=== PATIENT | female | born 1960 | race Caucasian/White ===

== ENCOUNTER → 2018-07-06 21:20 | Outpatient (CLI) | payer BC, SELFPAY ==
[2018-07-06 21:32] LABS: Hematocrit 39.4 % (37-47); Mean Corpuscular Hgb 28.6 pg (27.0-32.0); Mean Corpuscular Volume 86.6 fL (81-99); RBC Distribution Width SD 47.2 fl (35.1-43.9); Red Blood Count 4.55 M/mm3 (4.2-5.4)
[2018-07-06 21:33] LABS: Absolute Lymphocyte Count 1.84 X10^3/ul (0.83-4.51); Absolute Neutrophil Count 5.2 X10^3/uL (2.0-7.7); Basophil# 0.01 X10^3/uL; Basophil% 0.1 % (0-1); Eosinophil# 0.18 X10^3/uL; Eosinophils% 2.3 % (0-5); Lymphocyte # 1.84 X10^3/ul (4.0); Mean Platelet Vol. 9.9 fl (6.2-12.0); Monocyte# 0.78 X10^3/uL; Monocyte% 9.8 % (0-10); Neutrophil # 5.18 X10^3/uL (2.7-7.7); Neutrophil % 64.7 % (47-70); POSITIVE COUNT NO; POSITIVE DIFFERENTIAL NO; POSITIVE MORPHOLOGY NO; Platelet Count 323 K/mm3 (150-450)
[2018-07-06 22:03] LABS: Glucose 99 mg/dL (74-106)
[2018-07-06 22:04] LABS: ALB/GLOB Ratio 0.9 RATIO (0.9-2.4); AST(SGOT) 20 U/L (15-37); Alanine Aminotransfer ALT/SGPT 39 U/L (13-56); Albumin, Serum 3.6 g/dL (3.2-5.0); Alkaline Phosphatase 183 U/L (45-117); BUN 24 mg/dL (7-18); BUN/Creat Ratio 18.5 RATIO (10-20); Calcium,Total 9.5 mg/dL (8.5-10.1); Globulin 4.1 g/dL (2.2-4.2); Protein, Total 7.7 g/dL (6.4-8.2)
[2018-07-06 22:05] LABS: Anion Gap 8 (5-15); Chloride 94 mmol/L (98-107); Ferritin 308 ng/mL (8-252); Iron Binding Capacity,Total 284 ug/dL (250-450); Potassium 2.7 mmol/L (3.5-5.1); Thyroid Stim Hormone (TSH) 1.52 uIU/mL (0.358-3.74)
[2018-07-06 22:20] LABS: EST Glomerular Filtration Rate 44 mL/min (>60); Est Glom Filt Rate - Afr Amer 54 mL/min (>60); Sodium Level 137 mmol/L (136-145)
[2018-07-08 14:09] LABS: ANTINUCLEAR ANTIBODIES DIRECT Negative (Negative)
[2018-07-09 11:43] LABS: ALB/GLOB Ratio 0.9 RATIO (0.9-2.4); AST(SGOT) 21 U/L (15-37); Alanine Aminotransfer ALT/SGPT 36 U/L (13-56); Albumin, Serum 3.5 g/dL (3.2-5.0); Alkaline Phosphatase 173 U/L (45-117); Anion Gap 7 (5-15); BUN 24 mg/dL (7-18); BUN/Creat Ratio 21.8 RATIO (10-20); Chloride 104 mmol/L (98-107); EST Glomerular Filtration Rate 54 mL/min (>60); Est Glom Filt Rate - Afr Amer 65 mL/min (>60); Glucose 111 mg/dL (74-106); Potassium 4.9 mmol/L (3.5-5.1); Protein, Total 7.5 g/dL (6.4-8.2); Sodium Level 140 mmol/L (136-145)
--- OUTSIDE RECORDS SUMMARY | 2018-09-01 04:46 | XMS RPT_ITS ---
:1960 Author Organization OHIP Care Team Providers Name Role Phone LOTTIE LOPEZKA Referring Unavailable LOPEZ, GRACE Referring Unavailable LOPEZ, GRACE Referring Unavailable LOPEZ, GRACE Referring Unavailable LOPEZ, GRACE Referring Unavailable Reddy, Marti FORKLIFT PICKER-C Attending Unavailable Reddy, Marti FORKLIFT PICKER-C Referring Unavailable Reddy, Marti FORKLIFT PICKER-C Attending Unavailable Parrish Worrell Attending Unavailable Parrish Worrell Attending Unavailable Parrish Worrell Referring Unavailable Reddy, Marti FORKLIFT PICKER-C Primary Care Unavailable Parrish Worrell Attending Unavailable Parrish Worrell Referring Unavailable Reddy, Marti FORKLIFT PICKER-C Primary Care Unavailable PROBLEMS PROBLEMS DATE TYPE CONDITION / CODE ATTENDING STATUS SOURCE 07/12/2018 Unknown I50.9 - Heart Parrish Worrell Active [facility] [place] failure, unspecified Community / I50.9(ICD-10) Hospital Repository 07/12/2018 Unknown I42.0 - Dilated Parrish Worrell Active [place] cardiomyopathy / Community I42.0(ICD-10) Hospital Repository 07/12/2018 Unknown I34.0 - Nonrheumatic Parrish Worrell Active [place] mitral (valve) Community insufficiency / Hospital I34.0(ICD-10) Repository 07/12/2018 Unknown R40.0 - Somnolence / Parrish Worrell Active [place] R40.0(ICD-10) [facility] Hospital Repository 07/07/2018 Unknown M25.40 - Effusion, Reddy, Active [place] unspecified joint / Marti FORKLIFT PICKER-C Community M25.40(ICD-10) Hospital Repository 07/07/2018 Unknown D64.9 - Anemia, Clint, Active [place] unspecified / Marti FORKLIFT PICKER-C Community D64.9(ICD-10) Hospital Repository 07/07/2018 Unknown E03.9 - Clint, Active [place] Hypothyroidism, Marti FORKLIFT PICKER-C Community unspecified / Hospital E03.9(ICD-10) Repository 05/06/2018 Active Anemia, unspecified NA Active [place] / D64.9(ICD-10) Clinic Other [place] Repository PROCEDURES PROCEDURES No Procedure Records FoundRESULTS RESULTS STRESS TEST ECHO W/ Observed: 07/26/2018 Status: F Source: [place] CONTRAST 5:12 PM [facility] REPOSITORY [facility] Cardiovascular Services [address] [place] [address] Stress Test Echo W/Contrast MR#: [id number] Acct: [id number] Name: TOBIAS VALLES Rep #: [id number] : 1960 58 From: Parrish Worrell MD Primary Care: Marti Reddy NP Status: REG CLI Ordering Dr: Parrish Worrell MD Sex: F C Reason For Study: CHF Stress Results Maximum Predicted HR: 160 bpm Target HR: 136 bpm % Maximum Predicted HR: 97 % DurationHeart Rate Stage (mm:ss) (bpm) BP Comment BASELINE 93 162/821CC DEFINITY,SL SOB WITH AMBULATING TO ROOM PRE PROCEDURE STAGE 1 2:30 155 168/841CC DEFINITY, INCREASED SOB RECOVERY 96 138/88SOB RESOLVED Stress Duration: 2:30 mm:ss Maximum Stress HR: 155 bpm Baseline Echocardiogram Findings The estimated ejection fraction is 60 %. Stress Echo Wall motion Data Resting WM Intermediate WM Stress WM Resting Wall Motion Wall Motion Stress No regional wall motion No regional wall motion abnormalities noted. abnormalities noted. EKG Data The baseline ECG displays normal sinus rhythm. The patient exercised according to the regular Main protocol for a total duration of 2:30. The maximum heart rate attained was 155 beats per minute. This was 96% of maximum predicted heart rate. The patient exercised into stage 1 of the Main protocol. During stress, there were no ST or T wave changes noted to suggest ischemia. No clinical angina was noted. Interpretation Summary The study was technically limited. Contrast injection was performed. The estimated ejection fraction is 60 %. Normal, adequate, treadmill echocardiogram. Negative for ischemia by EKG and echocardiographic criteria. No anginal symptoms noted. Rare PVCs noted. Hypertensive blood pressure response to exercise. Very poor exercise capacity for age. Decreased sensitivity due to failure poor echo windows requiring Definity agent. Final LVEF of 65%. Recommend clinical correlation or alternative mode of testing if coronary ischemia is strongly suspected. No complications. Ordering Physician: Parrish Worrell Referring Physician: Parrish Worrell Performed By: Elissa Ward RDCS, RVT 07/26/181710 Date Parrish Worrell MD CC: LINDA Reddy; Parrish Worrell MD Date Dictated: 07/25/18 1030 Date Transcribed: 07/26/181710 Power Superintendent: Signed ECHO, COMPLETE W/ Observed: 07/20/2018 Status: F Source: [place] CONTRAST 3:04 PM [facility] REPOSITORY [facility] Cardiovascular Services [address] [place] [address] Echo Complete W/ Contrast 07/20/18 1354 MR#: [id number] Acct: [id number] Name: TOBIAS VALLES Rep #: [id number] : 1960 58 From: Parrish Worrell MD Attending Dr: Parrish Worrell MD Status: REG CLI Ordering Dr: Parrish Worrell MD Date: 07/20/18 Location: [facility] Sex: F C Admitted: Reason For Study: CHF Procedure This was a 2D Doppler, Color Flow transthoracic echocardiogram. The study was technically difficult. Contrast injection was performed. Exam performed in department. Left Ventricle Normal size and thickness. The estimated ejection fraction is 55 %. Stage 1 diastolic dysfunction. There is mild global hypokinesis of the left ventricle. Right Ventricle Normal size and thickness. Atria Normal left atrium. Normal right atrium. Normal atrial septum. Mitral Valve The mitral valve is structurally normal. No prolapse or stenosis seen. Tricuspid Valve Normal tricuspid valve. Unable to estimate RV systolic pressure/pulmonary artery pressure due to technically difficult study. Aortic Valve Normal aortic valve. Trisinus/trileaflet aortic valve. Pulmonic Valve Normal pulmonic valve. Great Vessels Normal aortic root. Normal arch. Normal inferior vena cava. Inferior vena cava collapse with sniff. Pericardium/Pleural No pericardial effusion. Medication 22 gauge I.V. with prn adaptor inserted into left arm. Diluted definity 3ml given slow IV push to enhance endocardial definition. MMode/2D Measurements AND Calculations LVIDd: 5.1 cm IVSd: 1.2 cm Ao root diam: 2.9 cm LVIDs: 3.9 cm LVPWd: 1.0 cm LA dimension: 4.2 cm FS: 22.5 % LAV(MOD-bp): 75.0 ml LVAd ap4: 36.0 cm2 SV(MOD-sp4): 74.3 ml LAV(MOD-bp) Indexed: 32.1 ml/m2 EDV(MOD-sp4): 131.8 ml LAV(MOD-sp2): 68.7 ml EDV(sp4-el): 135.7 ml LAV(MOD-sp4): 64.0 ml LVAs ap4: 21.8 cm2 ESV(MOD-sp4): 57.4 ml ESV(sp4-el): 55.6 ml EF(MOD-sp4): 56.4 % EF(sp4-el): 59.0 % SV(sp4-el): 80.0 ml LA A4 area: 20.2 cm2 RA A4 area: 16.4 cm2 Time Measurements MV dec time: 0.18 sec Doppler Measurements AND Calculations MV E max luz: 100.1 cm/sec MV V2 max: 153.1 cm/sec MV P1/2t max luz: 135.8 cm/sec MV A max luz: 121.8 cm/sec MV max P.4 mmHg MV P1/2t: 62.3 msec MV E/A: 0.82 MV V2 mean: 90.6 cm/sec MV dec slope: 637.9 cm/sec2 MV mean P.0 mmHg MVA(P1/2t): 3.5 cm2 MV V2 VTI: 30.2 cm Ao V2 max: 131.9 cm/sec LV V1 max: 98.4 cm/sec PA V2 max: 102.1 cm/sec Ao max P.0 mmHg LV V1 max P.9 mmHg Ao V2 mean: 88.8 cm/sec LV V1 mean P.6 mmHg Ao mean P.5 mmHg LV V1 mean: 57.3 cm/sec Ao V2 VTI: 25.0 cm LV V1 VTI: 22.5 cm Interpretation Summary The estimated ejection fraction is 55 %. There is mild global hypokinesis of the left ventricle. Unable to estimate RV systolic pressure/pulmonary artery pressure due to technically difficult study. Stage 1 diastolic dysfunction. The study was technically difficult. There is no comparison study available. Contrast injection was performed. Ordering Physician: Parrish Worrell Referring Physician: Parrish Worrell Performed By: Gonzalez Kingsley RCS 07/20/18 1504 Date Parrish Worrell MD CC: LINDA Reddy; Parrish Worrell MD Date Dictated: 07/20/18 1354 Date Transcribed: 07/20/18 1504 Power Superintendent: Signed CARDIOLOGY VISIT Observed: 07/12/2018 Status: F Source: [place] REPORT 2:44 PM [facility] REPOSITORY [facility] [address] [facility] [place] [address] OFFICE VISIT Date of Service: 07/12/18 MR#: [id number] Acct: [id number] Name: TOBIAS NAVARRO Rep #: [id number] : 1960 Provider: Parrish Worrell MD Age/Sex: 58/F Location: [facility] Status: Signed HPI HPI Chief Complaint: Dilated CMP/initial visit Details: TOBIAS NAVARRO, is a 58 F who presents to the office today for initial evaluation of previously diagnosed LV dysfunction and pulmonary hypertension. Specifically the patient is a 58-year-old morbidly obese nondiabetic female, former smoker quit around 8 years ago after a 2 pack/day x 30-year smoking habit, no known coronary artery disease. The patient was diagnosed with congestive heart failure after she presented about 2 years ago with shortness of breath and dyspnea on exertion and lower extremity edema. On 08/07/16 she underwent a 2D echo with Doppler which demonstrated an EF around 40%, RVSP of approximately 44 mmHg. He underwent a non-walking nuclear stress test on 11/06/16 which demonstrated no evidence of ischemia, normal LV function, an EF around 55%. In addition she underwent a CT scan on 03/31/17 which showed mild emphysema and stable mild chronic interstitial lung disease and stable small masses in her liver and adrenal gland. She was initially treated with beta- lópez and lisinopril which was subsequently discontinued. She is currently on high-dose spironolactone 100 mg twice daily and Lasix 40 mg 3 times daily. Patient states that for the better part of the year she has continued to have worsening shortness of breath and dyspnea on exertion so much so that she is unable to lay down flat and now sleeps in a chair. She also admits to excessive snoring when she was able to lay down flat, daytime somnolence, and constantly tired. She denies any current chest pain or angina but did have some chest pressure when she is initially diagnosed in 2016. In our office today her blood pressure is 150/60, pulse is 100 and regular. Her physical exam demonstrates morbid obesity, clear lungs bilaterally, no carotid bruits, regular rate and rhythm, no S3 or S4. No murmurs are detected. She has trace bilateral lower extremity edema and is wearing NA hose. Her EKG dated 10/26/16 showed sinus tachycardia, normal axis, normal intervals, PVC, no previous myocardial infarction noted. EKG today 07/12/18 showed normal sinus rhythm, PVC, normal axis, no evidence of previous myocardial infarction. Intake Vital Signs07/12/18 Height 5 ft 7 in 07/12/18 Weight: 284 lb 07/12/18 Body Mass Index (BMI) 44.4 07/12/18 Blood Pressure 150/60 H Intake Visit Reasons: CHF (MARTI REDDY) [employer] Supervisor Required: No Is patient in pain?: No Allergies nitrofurantoin [From Macrodantin] Allergy (Severe, Verified 07/12/18 14:07) Rash and swelling Penicillins Allergy (Severe, Verified 07/12/18 14:07) Rash and swelling azithromycin [From Zithromax] Adverse Reaction (Severe, Verified 07/12/18 14:09) Chest pain, nausea acetaminophen [From Vicodin] Adverse Reaction (Intermediate, Verified 07/12/18 14:07) Nausea and Vomiting hydrocodone [From Vicodin] Adverse Reaction (Intermediate, Verified 07/12/18 14:07) Nausea and Vomiting Medications duloxetine 60 mg capsule,delayed release 60 mg PO DAILY #30 cap 07/06/18 [Rx Confirmed 07/12/18] meloxicam 15 mg tablet 15 mg PO QDAY #30 tab 07/06/18 [Rx Confirmed 07/12/18] prednisone 10 mg tablet 20 mg PO BID PRN 10 Days #40 tab 07/06/18 [Rx Confirmed 07/12/18] budesonide-formoterol HFA 160 mcg-4.5 mcg/actuation aerosol inhaler 2 puff INHALATION BID 07/07/18 [History Confirmed 07/12/18] potassium chloride ER 20 mEq tablet,extended release 40 meq PO TID 14 Days #84 tab 07/07/18 [Rx Confirmed 07/12/18] pramipexole 0.75 mg tablet 0.75 mg PO QHS 07/07/18 [History Confirmed 07/12/18] ranitidine 150 mg tablet 150 mg PO DAILY 07/07/18 [History Confirmed 07/12/18] spironolactone 100 mg tablet 100 mg PO BID #60 tab 07/07/18 [Rx Confirmed 07/12/18] tramadol 50 mg tablet 50 mg PO Q6H 07/07/18 [History Confirmed 07/12/18] trazodone 100 mg tablet 100 mg PO DAILY 07/07/18 [History Confirmed 07/12/18] valacyclovir 1 gram tablet 1,000 mg PO DAILY 07/07/18 [History Confirmed 07/12/18] venlafaxine ER 75 mg capsule,extended release 24 hr 75 mg PO DAILY 07/07/18 [History Confirmed 07/12/18] dextroamphetamine-amphetamine ER 10 mg 24hr capsule,extend release 10 mg PO QAM 07/12/18 [History Confirmed 07/12/18] furosemide 40 mg tablet 40 mg PO TID tab 07/12/18 [History Confirmed 07/12/18] gabapentin 300 mg capsule 300 mg PO TID 07/12/18 [History Confirmed 07/12/18] [facility] Medical History Melanoma of left upper arm (Chronic) Dilated cardiomyopathy (Chronic) Nonrheumatic mitral valve regurgitation (Chronic) Secondary pulmonary hypertension (Chronic) Left ventricular systolic dysfunction (Chronic) Asthma (Chronic) GERD (gastroesophageal reflux disease) (Chronic) Anemia (Chronic) CHF (congestive heart failure) (Acute) Anxiety disorder (Chronic) Depression (Chronic) Low iron (Chronic) Surgical History History of (Chronic) History of cholecystectomy (Chronic) History of hysterectomy (Chronic) History of right knee surgery (Chronic) Family History Father Cancer History of mitral valve replacement with mechanical valve Congestive heart failure Mother Congestive heart failure Social History Smoking Status: Former smoker quit date: 08/09/09 ROS Const Const: Positive for fatigue and other (Just DX with rheumatoid arthritis.); negative for weakness, body ache, fever(s), headache(s), chills, frequent falls, night sweats, daytime sleepiness, difficulty sleeping, excessive sweating, weight gain, weight loss, increased appetite, poor appetite or anorexia ENT ENT: Negative for headache(s) Cardio Chest Pain: No Palpitations: No Edema: Bilateral (Wears support stocking, is on Lasix 40 tid and spironolactone 100 bid) Muscle aches with walking: None Resp Respiratory: Positive for SOB with activity, SOB orthopnea\SOB lying down and other; negative for SOB at rest, Cough, Coughing up blood/hemoptysis, chest congestion, pain on inspiration, snoring, stridor, wheezing, crackles or paroxysmal nocturnal dyspnea Neuro Neuro: Negative for weakness, headache(s) or frequent falls Endo Endo: Positive for fatigue; negative for excessive sweating Cardiology Exam Const Appearance: cooperative, healthy appearing and no acute distress Nutritional Appearance: well nourished Orientation: alert, oriented x3 and oriented to person Head Head: normal to inspection, atraumatic and normocephalic Nose: external nose normal Face and Sinus: face symmetric Mouth: oral mucosae normal Eyes General: appearance normal, both eyes and all related structures Eyelids: eyelids normal Conjunctivae: conjunctivae normal Pupils: PERRL and normal by confrontation EOM: EOM intact bilaterally Neck Neck: normal visual inspection and full ROM Carotids: normal carotid upstroke Chest Chest inspection: normal inspection of the chest Auscultation: Bilateral: Clear to Auscultation Cardio Palpation: normal PMI Rate: regular rate Rhythm: regular rhythm Heart sounds: S1 normal and S2 normal GI GI: normal to inspection, no hepatosplenomegaly and bowel sounds present Neuro General: alert, oriented x3, awake, CN's II-XI intact bilaterally and moves all extremities Skin Skin: no rashes or lesions noted Extremities Pulses: Normal: Right Femoral Pulse, Left Femoral Pulse, Right Dorsalis Pedis Pulse, Left Dorsalis Pedis Pulse, Right Posterior Tibial Pulse, Left Posterior Tibial Pulse, Right Radial Pulse, Left Radial Pulse Lower Extremity Edema: None: Bilateral Psych Psychological: normal affect Assessment AND Plan 1. Dilated cardiomyopathy I42.0 EF 39%, left ventricle moderately dilated; entire anterior, lateral,septum, apex and inferior wall are mildly hypokinetic per echo 08/07/2016 done @ [facility] Plan 1. LV dysfunction: The patient was noticed with LV dysfunction by echocardiogram in 2016 and reportedly was found to have normal LV by nuclear medicine evaluation in 2017. Patient has had progressively worsening dyspnea on exertion, shortness of breath, superimposed upon hypertension. I am unsure why her lisinopril and beta-lópez were discontinued as she did not appear to have any side effects. I recommended that we repeat her 2D echo with Doppler and undergo a modified Main treadmill echocardiogram to assess her LV function, exercise capacity, and ischemia. If this is grossly abnormal for abnormality she may require a left and right heart catheterization. In the meantime we will start her on baby aspirin, continue her Lasix, and continue her spironolactone at the current levels although my preference would be to reduce her spironolactone at least to 100 mg daily. In addition she will undergo treatment with Coreg 3.125 mg p.o. twice daily for tachycardia and LV dysfunction. She will return in 2 weeks time for a blood pressure check. In addition we will check a fasting profile for completeness of her cardiovascular evaluation. Orders Orders: 2. Secondary pulmonary hypertension Mild:RVSP 44mmhg per echo 08/07/2016 done @ [facility] Plan 2. Pulmonary hypertension: Given the patient's smoking history and RVSP of 44 mmHg, I recommend repeat echocardiogram, continuation of diuretic therapy, and full pulmonary function test to accurately diagnose whether she truly has COPD/emphysema. Her previous diagnosis came from a CT scan. 3. Somnolence, daytime R40.0 Plan 3. Daytime somnolence:Patient may have undiagnosed obstructive sleep apnea and given her signs and symptoms as well as her daytime somnolence, snoring, and body habitus I recommended a sleep study. 4. Return office in 6 months. This note was generated using a voice recognition system and there may be incorrect words, spelling or punctuation that were not noted when reviewing the office note prior to saving. Orders Orders: Plan Detail Other Orders Orders: Follow Up +6M (Worrell) Coding Level of Care Code Off vis,new,level 4 Diagnoses Dilated cardiomyopathy I42.0 Secondary pulmonary hypertension Somnolence, daytime R40.0 Coding Level of Care Code Off vis,new,level 4 Diagnoses Dilated cardiomyopathy I42.0 Secondary pulmonary hypertension Somnolence, daytime R40.0 07/12/18 1444 <Electronically signed by Parrish Worrell MD> Date Parrish Worrell MD Cosigner Signature: Date (if applicable) CC: 12 LEAD EKG PERFORMED Observed: 07/12/2018 Status: F Source: [place] [facility] 1:51 PM [facility] REPOSITORY [id number] [place] [address] [address] [facility] 07/12/18 1351 MR#: [id number] Acct: [id number] Name: TOBIAS VALLES Rep #: [id number] : 1960 58 From: Parrish Worrell MD Attending Dr: Parrish Worrell MD Status: DEP AMB Ordering Dr: Parrish Worrell MD Date: 07/12/18 Location: [facility] Sex: F C Admitted: [facility]/12 Lead EKG performed by [facility] ECG Report Interpretation Sinus Rhythm - occasional ectopic ventricular beat -Possible old inferior infarctABNORMAL Electronically signed on 07/22/2018 at 15:34 by Parrish Worrell Software Version [id number] 07/22/18 1541 Date Parrish Worrell MD CC: Date Dictated: 07/12/18 135 Date Transcribed: 07/12/18 1351 Power Superintendent: Signed COMPREHENSIVE METABOLIC Collected: 07/09/2018 Status: F Source: [place] [facility] 11:05 AM [facility] REPOSITORY TYPE CODE TESTS RESULT OUT OF RANGE REFERENCE UNITS LAB L501.0100 74-106 mg/dL High GLU 111 Result Comment: Fasting Glucose result from 100 to 125 mg/dL suggests IMPAIRED HOMEOSTASIS per A.D.A. criteria. Please note revised GLUCOSE reference range effective 2017. LAB L501.1000 7-18 mg/dL High BUN 24 LAB L501.1100 0.55-1.02 mg/dL High CREAT,SERUM 1.10 Result Comment: The validity of the calculated GFR AND GFRAA in patients over 70 years has not been determined. Clinical correlation is essential. LAB L501.1110 >60 mL/min Low EST GFR 54 Result Comment: Non- GFR Calc LAB L501.1115 >60 mL/min Normal EST GFR - AA 65 Result Comment: GFR Calc LAB L501.1300 10-20 RATIO High BUN/CRE 21.8 LAB L501.1500 6.4-8.2 g/dL T Normal PROT 7.5 LAB L501.1800 3.2-5.0 g/dL Normal ALB 3.5 LAB L501.1950 2.2-4.2 g/dL Normal GLOB 4.0 LAB L501.2000 0.9-2.4 RATIO Normal A/G 0.9 LAB L501.2200 8.5-10.1 mg/dL CA Normal 9.0 LAB L501.4100 15-37 U/L Normal AST 21 LAB L501.4305 45-117 U/L High ALK P 173 LAB L501.4405 13-56 U/L Normal ALT 36 LAB L501.4600 0.20-1.00 mg/dL T Normal BILI 0.30 LAB L501.5300 136-145 mmol/L NA Normal 140 LAB L501.5600 3.5-5.1 mmol/L K Normal 4.9 LAB L501.5900 98-107 mmol/L CL Normal 104 LAB L501.6100 21.0-32.0 mmol/L Normal CO2 29.0 LAB L501.6200 5-15 Normal GAP 7 Performed By: #### L500.4050 #### [facility] [address] [place], [address] OFFICE VISIT Observed: 07/07/2018 Status: F Source: [place] 2:47 PM [facility] REPOSITORY [facility] [address] [place] [address] OFFICE VISIT Date of Service: 07/06/18 MR#: [id number] Acct: [id number] Name: TOBIAS NAVARRO Rep #: [id number] : 1960 Provider: LINDA Reddy Age/Sex: 58/F Location: [facility] Status: Signed with Addenda ADDENDUM by LINDA Reddy on 07/07/18 at 1447 OFFICE PROCEDURES Office Procedure Documentation entered by VICENTE Hernandez 07/07/18 14:47: Office Meds cyanocobalamin (vit B-12) Performing Provider: VICENTE Hernandez Administered by: VICENTE Hernandez on 07/07/18 14:47 Dose Route Admin Location Lot Number Expiration Date [facility] Manager [employer] 1,000 mcg IM L deotoid [id number] 07/08/19 9348-6070-73 [employer] 07/07/18 1447 <Electronically signed by Marti ZHANG> Date Marti Reddy cc: * Signed Intake Vital Signs07/06/18 Height 5 ft 5 in 07/06/18 Weight: 282 lb Intake Visit Reasons: ESTABLISH NEW, CHF (congestive heart failure) Accompanied by: Is patient in pain?: Yes Allergies No Known Allergies Allergy (Verified 07/07/18 14:24) Medications duloxetine 60 mg capsule,delayed release 60 mg PO DAILY #30 cap 07/06/18 [Rx Confirmed 07/06/18] meloxicam 15 mg tablet 15 mg PO QDAY #30 tab 07/06/18 [Rx Confirmed 07/06/18] prednisone 10 mg tablet 20 mg PO BID PRN 10 Days #40 tab 07/06/18 [Rx Confirmed 07/06/18] budesonide-formoterol HFA 160 mcg-4.5 mcg/actuation aerosol inhaler 2 puff INHALATION BID 07/07/18 [History Confirmed 07/07/18] dextroamphetamine-amphetamine ER 10 mg 24hr capsule,extend release 10 mg PO QAM 07/07/18 [History Confirmed 07/07/18] furosemide 80 mg tablet 80 mg PO TID tab 07/07/18 [History Confirmed 07/07/18] gabapentin 100 mg capsule 100 mg PO TID cap 07/07/18 [History Confirmed 07/07/18] metolazone 2.5 mg tablet 2.5 mg PO DAILY 07/07/18 [History Confirmed 07/07/18] potassium chloride ER 20 mEq tablet,extended release 40 meq PO TID 14 Days #84 tab 07/07/18 [Rx Confirmed 07/07/18] pramipexole 0.75 mg tablet 0.75 mg PO QHS 07/07/18 [History Confirmed 07/07/18] ranitidine 150 mg tablet 150 mg PO DAILY 07/07/18 [History Confirmed 07/07/18] spironolactone 100 mg tablet 100 mg PO BID #60 tab 07/07/18 [Rx Confirmed 07/07/18] tramadol 50 mg tablet 50 mg PO Q6H 07/07/18 [History Confirmed 07/07/18] trazodone 100 mg tablet 100 mg PO DAILY 07/07/18 [History Confirmed 07/07/18] valacyclovir 1 gram tablet 1,000 mg PO DAILY 07/07/18 [History Confirmed 07/07/18] venlafaxine ER 75 mg capsule,extended release 24 hr 75 mg PO DAILY 07/07/18 [History Confirmed 07/07/18] Is last menstrual period known: No Post menopausal: Yes Patient : No PFSH Medical History Anemia (Acute) Anxiety disorder (Acute) Asthma (Acute) CHF (congestive heart failure) (Acute) Depression (Acute) GERD (gastroesophageal reflux disease) (Acute) Low iron (Acute) HPI HPI (General) HPI HPI: TOBIAS NAVARRO, is a 58 F who presents to the office today for new opinion about her problems She is seeing a Dr at the but she does not liten to her . She aches all over and and is very swollen, legs hands with some deformity , just touching her skin at times makes her scream in pain. approximately 1 year ago had an episode of unable to get her breath and ended up in [facility] and diagnosed with CHF, since then everything has gone down hill . She is on lasix 80 mg 3 x a day for the swelling and she is still swollen. He dr draws blood every 3 months. Today she is cramping and hurting all over . She states had an echo done in [place] all normal and stress test normal states sleeps in a recliner unable to lay flat Will get labs drawn today and call with the results and switch some of her meds around Claims recently had an iron infusion just a few weeks ago also ROS Const Constitutional: Positive for body ache, anorexia and weight change (weight gain) Gastro GI: Yes nausea/dyspepsia Neuro Neurology: Positive for restless legs Exam Const Constitutional: Yes cooperative, Yes ill appearing, Yes anxious Nutritional Appearance: Yes obese Orientation: Yes alert, awake and oriented x3 HENMT Head: Yes normocephalic Ear: Yes hearing grossly normal bilaterally Neck Neck: normal visual inspection Thyroid: thyroid normal Eyes General: Yes appearance normal, both eyes and all related structures Chest Chest palpation AND inspection: Yes normal inspection of the chest Resp Effort AND Inspection: Yes normal respiratory effort Auscultation: Yes clear to auscultation bilaterally Cardio Palpitation: Yes normal PMI Rate: Yes regular rate Rhythm: Yes regular rhythm GI Inspection: Yes normal to inspection Auscultation: Yes normal bowel sounds Musc Cervical Spine: Yes cervical ROM normal Thoracic/Lumbar Spine: Yes thoracic and lumbar spine normal to inspection Skin General: no rashes or lesions noted Lesions: Yes no lesions Extrem General: Yes normal to inspection Neuro General: Yes alert and oriented x3 Psych Appearance: Positive grossly normal Mood: Positive congruent mood Affect: Positive normal affect Assessment AND Plan Problems 1. Chronic congestive heart failure, unspecified heart failure type I50.9 2. Iron deficiency E61.1 3. Primary osteoarthritis involving multiple joints M15.0 4. B12 deficiency E53.8 Patient Instructions Stop the celexa and start the duloxetine for now Take the prednisone with meals and after done then start the meloxicam for the pain Will call with the results of the labs drawn today Orders Orders: Medications New: Coding Level of Care Code Off vis,new,level 4 Diagnoses Chronic congestive heart failure, unspecified heart failure type I50.9 Heart failure type: unspecified Heart failure chronicity: chronic Iron deficiency E61.1 Primary osteoarthritis involving multiple joints M15.0 Osteoarthritis location: multiple joints Osteoarthritis type: primary B12 deficiency E53.8 07/07/18 1440 <Electronically signed by Marti GIMENEZC> Date Marti ZHANG CC: CBC W/DIFF, AUTOMATED Collected: 07/06/2018 Status: F Source: JULIO 7:55 PM [facility] REPOSITORY TYPE CODE TESTS RESULT OUT OF RANGE REFERENCE UNITS LAB L100.1000 4.4-11.0 K/mm3 Normal WBC 8.0 LAB L100.1200 4.2-5.4 M/mm3 Normal RBC 4.55 LAB L100.1300 12.0-15.0 g/dl Normal HGB 13.0 LAB L100.1400 37-47 % Normal HCT 39.4 LAB L100.1500 81-99 fL Normal MCV 86.6 LAB L100.1600 27.0-32.0 pg Normal MCH 28.6 LAB L100.1700 32-36 g/gl Normal MCHC 33.0 LAB L100.1810 11.6-14.6 % High RDW CV 15.0 LAB L100.1820 35.1-43.9 fl High RDW SD 47.2 LAB L100.1900 150-450 K/mm3 Normal PLT 323 LAB L100.2000 6.2-12.0 fl Normal MPV 9.9 LAB L100.2100 47-70 % Normal NEUT% 64.7 LAB L100.2200 19-41 % Normal LY% 23.0 LAB L100.2300 0-10 % Normal MONO% 9.8 LAB L100.2400 0-5 % Normal EO% 2.3 LAB L100.2500 0-1 % Normal BASO% 0.1 LAB L100.2550 0.0-0.9 % Normal IM GRAN % 0.100 Result Comment: IG% - Immature Granulocytes (promyelocytes, myelocytes and metamyelocytes) > 1% indicates that a LEFT SHIFT is Present. LAB L100.2620 2.0-7.7 X10 3/uL Normal Absolute Neut 5.2 LAB L100.2720 0.83-4.51 X10 3/ul Normal Absolute Lymph 1.84 Performed By: #### L100.0100 #### [facility] [address] [place], [address] COMPREHENSIVE METABOLIC Collected: 07/06/2018 Status: C Source: JULIO [facility] 7:55 PM [facility] REPOSITORY TYPE CODE TESTS RESULT OUT OF RANGE REFERENCE UNITS LAB L501.0100 74-106 mg/dL Normal GLU 99 Result Comment: Please note revised GLUCOSE reference range effective 2017. LAB L501.1000 7-18 mg/dL High BUN 24 LAB L501.1100 0.55-1.02 mg/dL High CREAT,SERUM 1.30 Result Comment: The validity of the calculated GFR AND GFRAA in patients over 70 years has not been determined. Clinical correlation is essential. LAB L501.1110 >60 mL/min Low EST GFR 44 Result Comment: Non- GFR Calc AMENDED REPORT 07/06/182219 EST GFR previously reported as: 44 L mL/min LAB L501.1115 >60 mL/min Low EST GFR - AA 54 Result Comment: GFR Calc AMENDED REPORT 07/06/182219 EST GFR - AA previously reported as: 53 L mL/min LAB L501.1300 10-20 RATIO Normal BUN/CRE 18.5 LAB L501.1500 6.4-8.2 g/dL T Normal PROT 7.7 LAB L501.1800 3.2-5.0 g/dL Normal ALB 3.6 LAB L501.1950 2.2-4.2 g/dL Normal GLOB 4.1 LAB L501.2000 0.9-2.4 RATIO Normal A/G 0.9 LAB L501.2200 8.5-10.1 mg/dL CA Normal 9.5 LAB L501.4100 15-37 U/L Normal AST 20 LAB L501.4305 45-117 U/L High ALK P 183 LAB L501.4405 13-56 U/L Normal ALT 39 LAB L501.4600 0.20-1.00 mg/dL T Normal BILI 0.50 LAB L501.5300 136-145 mmol/L NA Normal 137 Result Comment: CALLED MARTI REDDY WITH CRITICAL K ON 07-06-18 AT 2200PM BY MAF READ BACK BY SAME AMENDED REPORT 07/06/182219 NA previously reported as: 137 mmol/L LAB L501.5600 3.5-5.1 mmol/L Low alert K 2.7 LAB L501.5900 98-107 mmol/L Low CL 94 LAB L501.6100 21.0-32.0 mmol/L High CO2 35.0 LAB L501.6200 5-15 Normal 8 GAP Performed By: #### L500.4050, L501.9520, L503.6075, L503.6550, L505.7010 #### [facility] [address] [place], [address] THYROID STIM HORMONE Collected: 07/06/2018 Status: F Source: [place] (TSH) 7:55 PM [facility] REPOSITORY TYPE CODE TESTS RESULT OUT OF RANGE REFERENCE UNITS LAB L501.9520 0.358-3.74 uIU/mL Normal TSH 1.52 Performed By: #### L500.4050, L501.9520, L503.6075, L503.6550, L505.7010 #### [facility] [place], [place], [id number] IRON BINDING Collected: 07/06/2018 Status: F Source: [place] CAPACITY,TOTAL 7:55 PM [facility] REPOSITORY TYPE CODE TESTS RESULT OUT OF RANGE REFERENCE UNITS LAB L503.6075 250-450 ug/dL Normal TIBC 284 Performed By: #### L500.4050, L501.9520, L503.6075, L503.6550, L505.7010 #### [facility] [place], [address] FERRITIN Collected: 07/06/2018 Status: F Source: [place] 7:55 PM [facility] REPOSITORY TYPE CODE TESTS RESULT OUT OF REFERENCE UNITS RANGE LAB L503.6550 8-252 ng/mL High FERRITIN 308 Performed By: #### L500.4050, L501.9520, L503.6075, L503.6550, L505.7010 #### [facility] [address] [place], [place], [address] RHEUMATOID FACTOR Collected: 07/06/2018 Status: F Source: JULIO 7:55 PM [facility] REPOSITORY TYPE CODE TESTS RESULT OUT OF REFERENCE UNITS RANGE LAB L505.7010 <15 IU/mL High RHEUMATOID FAC 290.0 Performed By: #### L500.4050, L501.9520, L503.6075, L503.6550, L505.7010 #### [facility] [address] [place], [place], [id number] ENRIQUETA W/ REFLEX MULT Collected: 07/06/2018 Status: F Source: [place] CONFIRM 7:55 PM [facility] REPOSITORY TYPE CODE TESTS RESULT OUT OF RANGE REFERENCE UNITS LAB L3100.5475 Negative Normal Negative ENRIQUETA-DIRECT Result Comment: Performed at: - [facility] [id number] Eligibility Clerk: Laureano Nathan PhD, Phone: [phone] Performed By: #### L3100.5450 #### [facility] (refer to report for specific site) refer to report for address and phone number ALLERGIES ALLERGIES DATE TYPE / NAME / CODE REACTION SEVERITY SOURCE CODE 07/12/2018 Drug Penicillins/[id number] RASH AND SV [place] Allergy/41 6(RXNORM) SWELLING [facility] [id number]([facility]) Repository 07/12/2018 Drug hydrocodone/[id number] NAUSEA AND MO [place] Allergy/41 4(RXNORM) VOMITING [facility] [id number]([facility]) Repository 07/12/2018 Drug acetaminophen/V280029 NAUSEA AND MO [place] Allergy/41 605(RXNORM) VOMITING [facility] [id number]([facility]) Repository 07/12/2018 Drug nitrofurantoin/M33203 RASH AND SV [place] Allergy/41 2852(RXNORM) SWELLING [facility] 5263371([facility]) Repository 07/12/2018 Drug azithromycin/[id number] Chest pain, SV [place] Allergy/41 35(RXNORM) nausea [facility] 5126849( Hospital O[facility]) Repository 07/07/2018 Drug No Known Unknown [place] Allergy/41 Allergies/[id number]( Community 5151070( RXNORM) Hospital OMED [facility]) Repository 10/26/2016 DRUG CARVEDILOL INTOLERANCE [place] INGREDI/41 Clinic Other [id number]([facility]) Repository 08/07/2016 DRUG AZITHROMYCIN [facility]/41 Clinic Other 0900727([facility]) Repository 05/28/2011 [facility] Clinic Other 6735224([facility] OMED [facility]) Repository 05/28/2011 Drug PENICILLINS RASH [place] Class/4195 Clinic Other 13327([facility] [place] ED [facility]) Repository 05/28/2011 DRUG/46400 HYDROCODONE-ACETAMINO Vomiting [place] 1003(OME PHEN Clinic Other D CT) [place] Repository ENCOUNTERS ENCOUNTERS ADMIT/DISCHARGE ACCOUNT ADMITTING ENCOUNTER LOCATION SOURCE NUMBER CLASS 07/25/2018 [id number] Ambulatory [facility] ing:[facility] Repository 07/20/2018 [id number] Ambulatory [facility] ing:[facility] Repository 07/12/2018/07/12/20 [id number] Ambulatory [facility] [place] [address] [facility] Repository 07/09/2018 [id number] [facility] ing:[facility] Repository 07/06/2018 [id number] [facility] ing:[facility] Repository 05/30/2018 [id number] Ambulatory [facility] Other [place] Repository 05/23/2018 [id number] Ambulatory [facility] Other [place] Repository 05/16/2018 [id number] Ambulatory [facility] Other [place] Repository 05/09/2018 [id number] Ambulatory [facility] Other [place] Repository 05/06/2018 [id number] Ambulatory [facility] [place] Repository PAYERS PAYERS ENCOUNTER GUARANTOR PAYER SUBSCRIBER SOURCE 07/25/2018 TOBIAS Fagan Primary TOBIAS Fagan [place] [id number] S Insurance:[facility] FABIANAB: [facility] y [place]: [id number] [id number] Repository [address]Gzv: (330) ve Date:[id number] [phone] () [address] [place] [address]55[address]YR: 07/25/2018 Secondary NOT GIVENUNK [place] Insurance:SELF PAY [facility] Number: Effective Repository Date:2018-07-12 07/20/2018 TABITHA Primary TOBIAS Kim [id number] S Insurance:ANTHEMPolic MILLNERDOB: Community PROSPECT y [place]: [id number] [id number] Repository 15563Rtd: (330) ve Date:[id number] [phone] () [address] [place] [address] [place] [address]QQ: 07/20/2018 Secondary NOT GIVENUNK [place] Insurance:SELF PAY [facility] Number: Effective Repository Date:2018-07-12 07/12/2018 JOSH Primary TOBIAS [id number] S Insurance:ANTHEMPolic MILLNERDOB: Community PROSPECTMED[place], y Number: [email or web address] [address]Rpp: [id number] Repository ve Date:2095-67-12RS () [id number] [place] [address]KX: 07/12/2018 Secondary NOT GIVENUNK [place] Insurance:SELF PAY [facility] Number: Effective Repository Date:2018-07-12 07/09/2018 JOSH Primary NOT GIVENUNK [place] [id number] S Insurance:SELF PAY [facility] PR[facility]PECT[facility] [place] [address]Neq: Number: Effective Repository Date:2018-07-09 () 07/06/2018 TOBIAS BROWN Primary TOBIAS [id number] Insurance:ANTHEMPolic MILNERDOB: Community PROSPECTMEDINA, y Number: [email or web address] [address]Bje: [id number] Repository ve Date:8803-07-70IG () [address], [place] [address]RX: 07/06/2018 Secondary NOT GIVENUNK [place] Insurance:SELF PAY [facility] Effective Repository Date:2018-07-06
== END ==
PROVIDERS: Referring Provider Nurse Practitioner; Visit Provider Nurse Practitioner
DX: M25.40 Effusion, unspecified joint (principal); D64.9 Anemia, unspecified; I50.9 Heart failure, unspecified; E03.9 Hypothyroidism, unspecified
CPT/HCPCS: 80053; 82728; 83550; 84443; 85025; 86038; 86225; 86235; 86431

== ENCOUNTER → 2018-07-20 13:34 | Outpatient (CLI) | payer BC, SELFPAY ==
[2018-07-12 14:03] VITALS: BMI 44.4
--- NOTE | 2018-07-20 13:40 | ECHOCS_ITS ---
Reason For Study: CHF Procedure This was a 2D Doppler, Color Flow transthoracic echocardiogram. The study was technically difficult. Contrast injection was performed. Exam performed in department. Left Ventricle Normal size and thickness. The estimated ejection fraction is 55 %. Stage 1 diastolic dysfunction. There is mild global hypokinesis of the left ventricle. Right Ventricle Normal size and thickness. Atria Normal left atrium. Normal right atrium. Normal atrial septum. Mitral Valve The mitral valve is structurally normal. No prolapse or stenosis seen. Tricuspid Valve Normal tricuspid valve. Unable to estimate RV systolic pressure/pulmonary artery pressure due to technically difficult study. Aortic Valve Normal aortic valve. Trisinus/trileaflet aortic valve. Pulmonic Valve Normal pulmonic valve. Great Vessels Normal aortic root. Normal arch. Normal inferior vena cava. Inferior vena cava collapse with sniff. Pericardium/Pleural No pericardial effusion. Medication 22 gauge I.V. with prn adaptor inserted into left arm. Diluted definity 3ml given slow IV push to enhance endocardial definition. MMode/2D Measurements & Calculations LVIDd: 5.1 cm IVSd: 1.2 cm Ao root diam: 2.9 cm LVIDs: 3.9 cm LVPWd: 1.0 cm LA dimension: 4.2 cm FS: 22.5 % LAV(MOD-bp): 75.0 ml LVAd ap4: 36.0 cm2 SV(MOD-sp4): 74.3 ml LAV(MOD-bp) Indexed: 32.1 ml/m2 EDV(MOD-sp4): 131.8 ml LAV(MOD-sp2): 68.7 ml EDV(sp4-el): 135.7 ml LAV(MOD-sp4): 64.0 ml LVAs ap4: 21.8 cm2 ESV(MOD-sp4): 57.4 ml ESV(sp4-el): 55.6 ml EF(MOD-sp4): 56.4 % EF(sp4-el): 59.0 % SV(sp4-el): 80.0 ml LA A4 area: 20.2 cm2 RA A4 area: 16.4 cm2 Time Measurements MV dec time: 0.18 sec Doppler Measurements & Calculations MV E max luz: 100.1 cm/sec MV V2 max: 153.1 cm/sec MV P1/2t max luz: 135.8 cm/sec MV A max luz: 121.8 cm/sec MV max P.4 mmHg MV P1/2t: 62.3 msec MV E/A: 0.82 MV V2 mean: 90.6 cm/sec MV dec slope: 637.9 cm/sec2 MV mean P.0 mmHg MVA(P1/2t): 3.5 cm2 MV V2 VTI: 30.2 cm Ao V2 max: 131.9 cm/sec LV V1 max: 98.4 cm/sec PA V2 max: 102.1 cm/sec Ao max P.0 mmHg LV V1 max P.9 mmHg Ao V2 mean: 88.8 cm/sec LV V1 mean P.6 mmHg Ao mean P.5 mmHg LV V1 mean: 57.3 cm/sec Ao V2 VTI: 25.0 cm LV V1 VTI: 22.5 cm Interpretation Summary The estimated ejection fraction is 55 %. There is mild global hypokinesis of the left ventricle. Unable to estimate RV systolic pressure/pulmonary artery pressure due to technically difficult study. Stage 1 diastolic dysfunction. The study was technically difficult. There is no comparison study available. Contrast injection was performed. Ordering Physician: Parrish Worrell Referring Physician: Parrish Worrell Performed By: Gonzalez Kingsley RCS
--- OUTSIDE RECORDS SUMMARY | 2018-09-05 17:36 | XMS RPT_ITS ---
:1960 Author Organization OHIP Support Name Relationship Address Phone JAMIL VALLES Unavailable [address] + [place] [address] S Unavailable Unavailable Unavailable REENA JAMIL Unavailable [address] + [place] [address] S Unavailable Unavailable Unavailable REENA, JAMIL Unavailable [address] + [place] [address] S Unavailable Unavailable Unavailable REENA, JAMIL Unavailable [address] + [place] [address] S Unavailable Unavailable Unavailable REENA, JAMIL Unavailable [address] + [place] [address] S Unavailable Unavailable Unavailable REENA, JAMIL Unavailable [address] + [place] [address] S Unavailable Unavailable Unavailable REENA, JAMIL Unavailable [address] + [place] [address] S Unavailable Unavailable Unavailable REENA, JAMIL Unavailable [address] + [place] [address] S Unavailable Unavailable Unavailable REENA, JAMIL Unavailable [address] + [place] [address] S Unavailable Unavailable Unavailable REENA, JAMIL Unavailable [address] + [place] [address] S Unavailable Unavailable Unavailable U Unavailable Unavailable Unavailable U Unavailable Unavailable Unavailable U Unavailable Unavailable Unavailable Care Team Providers Name Role Phone Parrish Worrell Attending Unavailable Parrish Worrell Referring Unavailable Marti Reddy ORTHOPEDIC TECHNICIAN-C Primary Care Unavailable Gerda Breaux Attending Unavailable Marti Reddy ORTHOPEDIC TECHNICIAN-C Referring Unavailable Carley Stone Attending Unavailable Parrish Worrell Attending Unavailable Parrish Worrell Referring Unavailable Marti Reddy ORTHOPEDIC TECHNICIAN-C Primary Care Unavailable Parrish Worrell Attending Unavailable Parrish Worrell Referring Unavailable Parrish Worrell Attending Unavailable Parrish Worrell Referring Unavailable Parrish Worrell Attending Unavailable Parrish Worrell Referring Unavailable Reddy, Marti ORTHOPEDIC TECHNICIAN-C Attending Unavailable Reddy, Marti ORTHOPEDIC TECHNICIAN-C Referring Unavailable Reddy, Marti ORTHOPEDIC TECHNICIAN-C Attending Unavailable Parrish Worrell Attending Unavailable Parrish Worrell Attending Unavailable Parrish Worrell Referring Unavailable Reddy, Marti ORTHOPEDIC TECHNICIAN-C Primary Care Unavailable Parrish Worrell Attending Unavailable Parrish Worrell Referring Unavailable Reddy, Marti ORTHOPEDIC TECHNICIAN-C Primary Care Unavailable Parrish Worrell Attending Unavailable Parrish Worrell Referring Unavailable Reddy, Marti ORTHOPEDIC TECHNICIAN-C Primary Care Unavailable LOPEZ, GRACE Referring Unavailable LOPEZ, GRACE Referring Unavailable LOPEZ, GRACE Referring Unavailable LOPEZ, GRACE Referring Unavailable LPOEZ, GRACE Referring Unavailable PROBLEMS PROBLEMS DATE TYPE CONDITION / CODE ATTENDING STATUS SOURCE 08/12/2018 Unknown I34.0 - Nonrheumatic Parrish Worrell Active [facility] mitral (valve) Community insufficiency / Hospital I34.0(ICD-10) Repository 08/12/2018 Unknown I42.0 - Dilated Worrell Parrish Active [place] cardiomyopathy / Community I42.0(ICD-10) Hospital Repository 08/12/2018 Unknown I51.9 - Heart Parrish Worrell Active [place] disease, unspecified Community / I51.9(ICD-10) Hospital Repository 08/12/2018 Unknown R06.09 - Other forms Parrish Worrell Active [facility] of dyspnea / Community R06.09(ICD-10) Hospital Repository 08/12/2018 Unknown R94.39 - Abnormal Parrish Worrell Active [facility] result of other [facility] cardiovascular Hospital function study / Repository R94.39(ICD-10) 08/12/2018 Unknown D64.9 - Anemia, Parrish Worrell Active [place] unspecified / Community D64.9(ICD-10) Hospital Repository 08/12/2018 Unknown E61.1 - Iron Parrish Worrell Active [place] deficiency / Community E61.1(ICD-10) Hospital Repository 08/12/2018 Unknown I50.9 - Heart Worrell Parrish Active [facility] failure, unspecified Community / I50.9(ICD-10) Hospital Repository 07/12/2018 Unknown R40.0 - Somnolence / Parrish Worrell Active [place] R40.0(ICD-10) [facility] Hospital Repository 07/07/2018 Unknown M25.40 - Effusion, Reddy, Active [place] unspecified joint / Marti ORTHOPEDIC TECHNICIAN-C Community M25.40(ICD-10) Hospital Repository 07/07/2018 Unknown E03.9 - Clint, Active [facility] Hypothyroidism, Marti ORTHOPEDIC TECHNICIAN-C Community unspecified / Hospital E03.9(ICD-10) Repository 05/06/2018 Active Anemia, unspecified NA Active [place] / D64.9(ICD-10) Clinic Other [place] Repository PROCEDURES PROCEDURES No Procedure Records FoundRESULTS RESULTS SEDIMENTATION RATE, Collected: 08/30/2018 Status: F Source: [place] ERYTHROCYTE 11:33 AM [facility] REPOSITORY TYPE CODE TESTS RESULT OUT OF REFERENCE UNITS RANGE LAB ESRWS(LOIN 0 - 30 mm/h C) SEDIMENTATION RATE, ERYTHROCYTE 18 Performed By: #### ESRWS #### [facility] [address] [place] [address] CBC AND DIFFERENTIAL Collected: 08/30/2018 Status: F Source: [place] 11:33 [facility] REPOSITORY TYPE CODE TESTS RESULT OUT OF REFERENCE UNITS RANGE LAB WBCR(LOINC 4.4 - 11.3 x10E9/L ) WBC 7.4 LAB NRBC(LOINC 0.0-0.0 /100 WBC ) NUCLEATED RBC 0.0 LAB RBCCT(LOIN 4.00 - 5.20 x10E12/L C) RBC 4.38 LAB HGB(LOINC) 12.0 - 16.0 g/dL HGB 12.8 LAB HCT(LOINC) 36.0 - 46.0 % HCT 40.5 LAB MCV(LOINC) 80 - 100 fL MCV 92 LAB MCHC2(LOIN 32.0 - 36.0 g/dL C) Low MCHC 31.6 LAB PLTCT(LOIN 150 - 450 x10E9/L C) PLT 265 LAB RDWCV(LOIN 11.5 - 14.5 % C) RDW-CV High 14.6 LAB NEUT(LOINC 40.0 - 80.0 % ) % NEUTROPHIL 68.8 LAB IG(LOINC) 0.0 - 0.9 % % AUTOMATED 0.4 IMMATURE GRAN Result Comment: Percent differential counts (%) should be interpreted in the context of the absolute cell counts (cells/L). LAB LYMPH(LOINC) 13.0 - 44.0 % % LYMPHOCYTE 19.1 LAB MONO(LOINC) 2.0 - 10.0 % % MONOCYTE 9.0 LAB EOS(LOINC) 0.0 - 6.0 % % EOSINOPHIL 2.3 LAB BASO(LOINC) 0.0 - 2.0 % % BASOPHIL 0.4 LAB #NEUT(LOINC) 1.20 - 7.70 x10E9/L NEUTROPHIL 5.10 LAB #LYMP(LOINC) 1.20 - 4.80 x10E9/L LYMPHOCYTE 1.42 LAB #MONO(LOINC) 0.10 - 1.00 x10E9/L MONOCYTE 0.67 LAB #EOS(LOINC) 0.00 - 0.70 x10E9/L EOSINOPHIL 0.17 LAB #BASO(LOINC) 0.00 - 0.10 x10E9/L BASOPHIL 0.03 Performed By: #### CBCDF #### [facility] [address] [place] [address] HEPATITIS B SURF AB Collected: 08/30/2018 Status: F Source: [address] REPOSITORY TYPE CODE TESTS RESULT OUT OF RANGE REFERENCE UNITS LAB HABF2(LOINC <10 mIU/mL ) HEP B < 3.1 SURF AB Result Comment: INTERPRETIVE CRITERIA: <10 mIU/mL....NONREACTIVE >=10 mIU/mL...REACTIVE . Patients receiving more than 5 mg/day of biotin may have interference in test results. A sample should be taken no sooner than eight hours after previous dose. Contact [phone] for additional information. LAB SOURCE(LOINC) Lab Specimen Source Performed By: #### HBAB3 #### [facility] [address] [place] [id number] HEPATITIS B SURFACE AG Collected: 08/30/2018 Status: F Source: [address] REPOSITORY TYPE CODE TESTS RESULT OUT OF REFERENCE UNITS RANGE LAB HAGFN(LOIN NONREACTIVE C) HEP.B SURFACE NONREACTIVE AG Result Comment: Patients receiving more than 5 mg/day of biotin may have interference in test results. A sample should be taken no sooner than eight hours after previous dose. Contact [phone] for additional information. LAB SOURCE(LOINC) Lab Specimen Source Performed By: #### HBSAG #### [facility] [address] [place] [address] C-REACTIVE PROTEIN Collected: 08/30/2018 Status: F Source: [place] 11:33 [facility] REPOSITORY TYPE CODE TESTS RESULT OUT OF RANGE REFERENCE UNITS LAB CRP(LOINC) mg/dL Abnormal C-REACTIVE 1.73 PROTEIN Result Comment: REF VALUE < 1.00 LAB SOURCE(LOINC) Lab Specimen Source Performed By: #### CRP #### [facility] [address] [place] [address] COMPREHENSIVE PANEL Collected: 08/30/2018 Status: F Source: [place] 11:33 [facility] REPOSITORY TYPE CODE TESTS RESULT OUT OF RANGE REFERENCE UNITS LAB GLU(LOINC) 74 - 99 mg/dL GLUCOSE 80 LAB SOD(LOINC) 136 - 145 mmol/L SODIUM 142 LAB K(LOINC) 3.5 - 5.3 mmol/L POTASSIUM 4.4 LAB CHLOR(LOIN 98 - 107 mmol/L C) CHLORIDE 104 LAB BIC(LOINC) 21 - 32 mmol/L BICARBONATE 28 LAB ANGAP(LOIN 10 - 20 mmol/L C) ANION GAP 14 LAB UREA(LOINC 6 - 23 mg/dL ) UREA NITROGEN 15 LAB CREA(LOINC 0.50 - 1.05 mg/dL ) CREATININE 0.99 LAB GFRFN(LOIN >60 mL/min/1.7 C) 3m2 GFR-NON Abnormal AM. 57 LAB GFRAA(LOIN >60 mL/min/1.7 C) 3m2 GFR- AM. 69 Result Comment: CALCULATIONS OF ESTIMATED GFR ARE PERFORMED USING THE MDRD STUDY EQUATION FOR THE IDMS-TRACEABLE CREATININE METHODS. CLIN CHEM 2007;53:766-72 LAB CA(LOINC) 8.6 - 10.6 mg/dL CALCIUM 9.6 LAB ALB(LOINC) 3.4 - 5.0 g/dL ALBUMIN 4.1 LAB AP(LOINC) 33 - 136 U/L ALKALINE PHOSPHATASE 125 LAB TP(LOINC) 6.4 - 8.2 g/dL TOTAL PROTEIN Low 6.1 LAB AST(LOINC) 9 - 39 U/L AST 19 LAB TBILI(LOINC) 0.0 - 1.2 mg/dL BILIRUBIN,TOTAL 0.3 LAB ALT(LOINC) 7 - 45 U/L ALT 32 Result Comment: Patients treated with Sulfasalazine may generate falsely decreased results for ALT. LAB SOURCE(LOINC) Lab Specimen Source Performed By: #### CMP #### [facility] [address] [place] [address] RHEUMATOID FACTOR Collected: 08/30/2018 Status: F Source: [place] 11:33 AM [facility] REPOSITORY TYPE CODE TESTS RESULT OUT OF REFERENCE UNITS RANGE LAB RF(LOINC) 0 - 15 IU/mL High RHEUMATOID 115 FACTOR LAB SOURCE(REZA NC) Lab Specimen Source Performed By: #### RF #### [facility] [address] [place] [address] BLOOD GASES BY CPS Collected: 08/12/2018 Status: F Source: [place] 10:38 AM [facility] REPOSITORY TYPE CODE TESTS RESULT OUT OF RANGE REFERENCE UNITS LAB L9000.9990 Normal BLD GAS ART TYPE LAB L9001.1110 7.35-7.45 Low pH - 7.33 I-STAT LAB L9001.1210 35-45 mmHg High pCO2 - 46.5 ISTAT LAB L9001.1310 75-100 mmHG Low PO2 61 I-STAT LAB L9001.2300 22-26 mmol/L Normal HCO3 24.8 ISTAT LAB L9001.2400 -2 to +2 mmol/L Normal BE ISTAT -1 LAB L9001.2415 mmol/L Normal TOTAL CO2 26 ISTAT LAB L9001.2425 95-99 % Low SO2 ISTAT 89 Performed By: #### L9000.0800 #### [facility] Point of Care [address] [place], [place] [address] VENOUS BLOOD GAS Collected: 08/12/2018 Status: F Source: [place] 10:33 AM [facility] REPOSITORY TYPE CODE TESTS RESULT OUT OF RANGE REFERENCE UNITS LAB L9000.9990 Normal BLD GAS FIDELINA TYPE LAB L9002.1110 7.32-7.42 Normal VBGpH - 7.33 I-STAT LAB L9002.1212 41-51 mmHg Normal VBG pCO2 46.5 - ISTA LAB L9002.1310 25-40 mmHg High VBG PO2 42 I-STAT LAB L9002.2300 22-26 mmol/L Normal VBG HCO3 24 ISTAT LAB L9002.2400 -1.0-3.5 mmol/L Low VBG BE -2 ISTAT LAB L9002.2410 50-70 % High VBG SO2 74 ISTAT LAB L9002.2415 23-33 mmol/L Normal VBG O2 CT 26 ISTAT Performed By: #### L9000.0810 #### [facility] Point of Care [address] [place], [place] [id number] VENOUS BLOOD GAS Collected: 08/12/2018 Status: F Source: [place] 10:30 AM [facility] REPOSITORY TYPE CODE TESTS RESULT OUT OF RANGE REFERENCE UNITS LAB L9000.9990 Normal BLD GAS FIDELINA TYPE LAB L9002.1110 7.32-7.42 Normal VBGpH - 7.32 I-STAT LAB L9002.1212 41-51 mmHg Normal VBG pCO2 47.1 - ISTA LAB L9002.1310 25-40 mmHg High VBG PO2 42 I-STAT LAB L9002.2300 22-26 mmol/L Normal VBG HCO3 24 ISTAT LAB L9002.2400 -1.0-3.5 mmol/L Low VBG BE -2 ISTAT LAB L9002.2410 50-70 % High VBG SO2 72 ISTAT LAB L9002.2415 23-33 mmol/L Normal VBG O2 CT 25 ISTAT Performed By: #### L9000.0810 #### [facility] Point [facility] Care [address] [place], [place] [address] CBC-COMPLETE BLOOD CNT Collected: 08/12/2018 Status: F Source: [place] NO DIFF 8:39 AM [facility] REPOSITORY TYPE CODE TESTS RESULT OUT OF RANGE REFERENCE UNITS LAB L100.1000 4.4-11.0 K/mm3 Normal WBC 7.5 LAB L100.1200 4.2-5.4 M/mm3 Normal RBC 4.45 LAB L100.1300 12.0-15.0 g/dl Normal HGB 12.9 LAB L100.1400 37-47 % Normal HCT 40.0 LAB L100.1500 81-99 fL Normal MCV 89.9 LAB L100.1600 27.0-32.0 pg Normal MCH 29.0 LAB L100.1700 32-36 g/gl Normal MCHC 32.3 LAB L100.1810 11.6-14.6 % High RDW CV 14.8 LAB L100.1820 35.1-43.9 fl High RDW SD 48.3 LAB L100.1900 150-450 K/mm3 Normal PLT 292 LAB L100.2000 6.2-12.0 fl Normal MPV 9.8 Performed By: #### L100.0500 #### [facility] [address] [place], [address] PROTHROMBIN TIME W/INR Collected: 08/12/2018 Status: F Source: [place] 8:39 AM [facility] REPOSITORY TYPE CODE TESTS RESULT OUT OF RANGE REFERENCE UNITS LAB L300.4150 11.7-14.9 SECONDS Normal PROTIME 12.8 LAB L300.4200 Normal INR 1.0 Performed By: #### L300.3900, L300.4310 #### [facility] [address] [place], [address] PARTIAL THROMBOPLAST Collected: 08/12/2018 Status: F Source: [place] TIME 8:39 AM [facility] REPOSITORY TYPE CODE TESTS RESULT OUT OF RANGE REFERENCE UNITS LAB L300.4310 24.1-36.2 Seconds Normal PTT 30.9 Performed By: #### L300.3900, L300.4310 #### [facility] [address] [facility], [address] BASIC METABOLIC Collected: 08/12/2018 Status: F Source: [place] PROFILE (BMP) 8:39 AM [facility] REPOSITORY TYPE CODE TESTS RESULT OUT OF RANGE REFERENCE UNITS LAB L501.0100 74-106 mg/dL Normal GLU 97 Result Comment: Please note revised GLUCOSE reference range effective 2017. LAB L501.1000 7-18 mg/dL High BUN 34 LAB L501.1100 0.55-1.02 mg/dL High CREAT,SERUM 2.07 Result Comment: The validity of the calculated GFR AND GFRAA in patients over 70 years has not been determined. Clinical correlation is essential. LAB L501.1110 >60 mL/min Low EST GFR 26 Result Comment: Non- GFR Calc LAB L501.1115 >60 mL/min Low EST GFR - AA 31 Result Comment: GFR Calc LAB L501.1255 ml/min Normal Estimated CRCL 28.11 LAB L501.1300 10-20 RATIO Normal BUN/CRE 16.4 LAB L501.2200 8.5-10 mg/dL Normal .1 CA 9.1 LAB L501.5300 136-14 mmol/L Normal 5 NA 137 LAB L501.5600 3.5-5. mmol/L Normal 1 K 5.0 LAB L501.5900 98-107 mmol/L Normal CL 103 LAB L501.6100 21.0-3 mmol/L Normal 2.0 CO2 26.0 LAB L501.6200 5-15 Normal GAP 8 Performed By: #### L500.2500 #### [facility] [address] [place], [address] CARDIOLOGY VISIT Observed: 08/04/2018 Status: F Source: [place] REPORT 4:59 PM [facility] REPOSITORY [facility] [address] [place], [place] [address] OFFICE VISIT Date of Service: 08/01/18 MR#: [id number] Acct: [id number] Name: TOBIAS VALLES Rep #: [id number] : 1960 Provider: Greda Breaux Age/Sex: 58/F Location: [facility] Status: Signed HPI HPI Details: TOBIAS VALLES, is a 58 F who presents to the office today for an updated history and physical for an upcoming heart catheterization. Patient recently established with us when she was diagnosed with LV dysfunction and pulmonary hypertension. In 2015 she had congestive heart failure that time her echocardiogram demonstrated an ejection fraction of 40%. Stress test in 2017 was negative for ischemia. Patient established with us when she continued to complain of worsening shortness of breath with exertion. She underwent an echocardiogram which demonstrated an ejection fraction of 55%. Mild global hypokinesis of the left ventricle. Unable to estimate RV pressure. Stage I diastolic dysfunction. She underwent a stress echocardiogram, ECG was normal during treadmill. Patient was noted to have hypertensive response during exercise. She had very poor exercise capacity for age. Echo images were poor. Because of patient's hypertensive response and poor exercise capacity heart catheterization was recommended. Pt does have SOB with exertion, this is not all the time but sometimes. She does not have any chest pain/heaviness. She does not have any palpitations. She does not have any near syncope/syncope. She does not have any orthopnea. She does edema, she sts that it is better in the am. Intake Vital Signs08/01/18 Body Mass Index (BMI) 44.4 Intake Visit Reasons: 2 WK BP CK PER DJN Allergies nitrofurantoin [From Macrodantin] Allergy (Severe, Verified 08/01/18 10:17) Rash and swelling Penicillins Allergy (Severe, Verified 08/01/18 10:17) Rash and swelling azithromycin [From Zithromax] Adverse Reaction (Severe, Verified 08/01/18 10:17) Chest pain, nausea acetaminophen [From Vicodin] Adverse Reaction (Intermediate, Verified 08/01/18 10:17) Nausea and Vomiting hydrocodone [From Vicodin] Adverse Reaction (Intermediate, Verified 08/01/18 10:17) Nausea and Vomiting Medications duloxetine 60 mg capsule,delayed release 60 mg PO DAILY #30 cap 07/06/18 [Rx Confirmed 08/01/18] meloxicam 15 mg tablet 15 mg PO QDAY #30 tab 07/06/18 [Rx Confirmed 08/01/18] budesonide-formoterol HFA 160 mcg-4.5 mcg/actuation aerosol inhaler 2 puff INHALATION BID 07/07/18 [History Confirmed 08/01/18] pramipexole 0.75 mg tablet 0.75 mg PO QHS 07/07/18 [History Confirmed 08/01/18] ranitidine 150 mg tablet 150 mg PO DAILY 07/07/18 [History Confirmed 08/01/18] spironolactone 100 mg tablet 100 mg PO BID #60 tab 07/07/18 [Rx Confirmed 08/01/18] tramadol 50 mg tablet 50 mg PO Q6H 07/07/18 [History Confirmed 08/01/18] trazodone 100 mg tablet 100 mg PO DAILY 07/07/18 [History Confirmed 08/01/18] valacyclovir 1 gram tablet 1,000 mg PO DAILY 07/07/18 [History Confirmed 08/01/18] venlafaxine ER 75 mg capsule,extended release 24 hr 75 mg PO DAILY 07/07/18 [History Confirmed 08/01/18] carvedilol 3.125 mg tablet 3.125 mg PO BID #60 tab 07/12/18 [Rx Confirmed 08/01/18] dextroamphetamine-amphetamine ER 10 mg 24hr capsule,extend release 10 mg PO QAM 07/12/18 [History Confirmed 08/01/18] furosemide 40 mg tablet 40 mg PO TID tab 07/12/18 [History Confirmed 08/01/18] gabapentin 300 mg capsule 300 mg PO TID 07/12/18 [History Confirmed 08/01/18] aspirin 81 mg tablet,delayed release 81 mg PO DAILY #30 tab 07/26/18 [Rx Confirmed 08/01/18] clopidogrel 75 mg tablet 75 mg PO DAILY #30 tab 07/26/18 [Rx Confirmed 08/01/18] PFSH Medical History Dyspnea on exertion (Acute) Abnormal stress test (Acute) Melanoma of left upper arm (Chronic) Dilated [...] Psychological: normal affect Assessment AND Plan 1. Abnormal stress test R94.39 Plan With patient's continued shortness of breath and abnormal stress test would like to obtain a heart catheterization to further evaluate coronary arteries and pulmonary pressure. 2. Dilated cardiomyopathy I42.0 EF 39%, left ventricle moderately dilated; entire anterior, lateral,septum, apex and inferior wall are mildly hypokinetic per echo 08/07/2016 done @ [facility] Plan This is since improved with recent echocardiogram. Patient will continue with current aggressive medical therapy. We will continue to monitor Plan Detail Additional Comments The above patient was discussed with [Dr. Campbell], he agrees with plan of care. Thank you for allowing us to participate in patient's plan of care, if you have any questions please do not hesitate to call. This note was generated using a voice recognition system and there may be incorrect words, spelling or punctuation errors that were not noted when reviewing the office note prior to saving. Follow Up 08/01/18 (keep as is) Coding Level of Care Code Off vis,est,level 3 Diagnoses Abnormal stress test R94.39 Dilated cardiomyopathy I42.0 Coding Level of Care Code Off vis,est,level 3 Diagnoses Abnormal stress test R94.39 Dilated cardiomyopathy I42.0 08/04/18 8919 <Electronically signed by Gerda RANDALL> Date Gerda RANDALL Cosigner Signature: Date (if applicable) CC: CBC-COMPLETE BLOOD CNT Collected: 08/01/2018 Status: F Source: [place] NO DIFF 11:50 AM [facility] REPOSITORY Order Comment: Comments: For heart cath Comments: For heart cath TYPE CODE TESTS RESULT OUT OF RANGE REFERENCE UNITS LAB L100.1000 4.4-11.0 K/mm3 Normal WBC 7.4 LAB L100.1200 4.2-5.4 M/mm3 Normal RBC 4.63 LAB L100.1300 12.0-15.0 g/dl Normal HGB 13.6 LAB L100.1400 37-47 % Normal HCT 41.8 LAB L100.1500 81-99 fL Normal MCV 90.3 LAB L100.1600 27.0-32.0 pg Normal MCH 29.4 LAB L100.1700 32-36 g/gl Normal MCHC 32.5 LAB L100.1810 11.6-14.6 % High RDW CV 15.3 LAB L100.1820 35.1-43.9 fl High RDW SD 50.6 LAB L100.1900 150-450 K/mm3 Normal PLT 254 LAB L100.2000 6.2-12.0 fl Normal MPV 10.2 Performed By: #### L100.0500 #### [facility] [address] [place] [place], [address] PROTHROMBIN TIME W/INR Collected: 08/01/2018 Status: F Source: [place] 11:50 AM [facility] REPOSITORY TYPE CODE TESTS RESULT OUT OF RANGE REFERENCE UNITS LAB L300.4150 11.7-14.9 SECONDS Normal PROTIME 12.5 LAB L300.4200 Normal INR 0.9 Performed By: #### L300.3900, L300.4310 #### [facility] [address] [place], [place], [address] PARTIAL THROMBOPLAST Collected: 08/01/2018 Status: F Source: [place] TIME 11:50 AM [facility] REPOSITORY TYPE CODE TESTS RESULT OUT OF RANGE REFERENCE UNITS LAB L300.4310 24.1-36.2 Seconds Normal PTT 29.3 Performed By: #### L300.3900, L300.4310 #### [facility] [address] [place], [address] BASIC METABOLIC Collected: 08/01/2018 Status: F Source: [place] PROFILE (BMP) 11:50 AM [facility] REPOSITORY Order Comment: Comments: For heart cath Comments: For heart cath TYPE CODE TESTS RESULT OUT OF RANGE REFERENCE UNITS LAB L501.0100 74-106 mg/dL Normal GLU 84 Result Comment: Please note revised GLUCOSE reference range effective 2017. LAB L501.1000 7-18 mg/dL High BUN 31 LAB L501.1100 0.55-1.02 mg/dL High CREAT,SERUM 1.48 Result Comment: The validity of the calculated GFR AND GFRAA in patients over 70 years has not been determined. Clinical correlation is essential. LAB L501.1110 >60 mL/min Low EST GFR 38 Result Comment: Non- GFR Calc LAB L501.1115 >60 mL/min Low EST GFR - AA 46 Result Comment: GFR Calc LAB L501.1300 10-20 RATIO High BUN/CRE 20.9 LAB L501.2200 8.5-10.1 mg/dL CA Normal 9.3 LAB L501.5300 136-145 mmol/L NA Normal 138 LAB L501.5600 3.5-5.1 mmol/L K Normal 4.8 LAB L501.5900 98-107 mmol/L CL Normal 104 LAB L501.6100 21.0-32.0 mmol/L Normal CO2 26.0 LAB L501.6200 5-15 Normal GAP 8 Performed By: #### L500.2500 #### [facility] [address] [place], [address] CHEST PA AND LATERAL Observed: 08/01/2018 Status: F Source: [place] 11:11 AM [facility] REPOSITORY [facility] Imaging Services [address] [place] [address] Chest PA and Lateral MR#: [id number] Acct: [id number] Name: TOBIAS VALLES Rep #: [id number] : 1960 F 58 From: Babatunde Araujo MD PCP: Marti Reddy NP Status: REG CLI Study: Chest PA and Lateral Date of Exam: 08/01/18 Exam# [id number] Ordering Dr: Parrish Worrell MD STUDY: X-RAY CHEST REASON FOR EXAM: Female, 58 years old. Preadmission testing for heart catheter. Shortness of breath. History of asthma, COPD, emphysema. TECHNIQUE: PA and lateral views of the chest. COMPARISON: None. FINDINGS: The lungs are clear and normally expanded. There is no demonstrated pleural abnormality. The heart size is upper normal Normal mediastinum and zahra. Normal visualized pulmonary arteries. Normal visualized aortic arch and descending thoracic aorta. There are mild multilevel degenerative changes of the visualized thoracic spine. Normal visualized ribs, clavicles, and shoulders. Surgical clips in the right upper quadrant of the abdomen are consistent with prior cholecystectomy. RAD/Chest PA and Lateral IMPRESSION: No acute cardiopulmonary disease. Electronically Signed: Wesley Araujo MD at 15:41 EST , Service support , CC: LINDA Reddy; Parrish Worrell MD Custom Grinder: Signed STRESS TEST ECHO W/ Observed: 07/26/2018 Status: F Source: [place] CONTRAST 5:12 PM [facility] REPOSIT[facility] Cardiovascular Services [address] [place] [address] Stress Test Echo W/Contrast MR#: [id number] Acct: [id number] Name: TOBIAS VALLES Rep #: [id number] : 1960 58 From: Parrish Worrell MD [...] Worrell Performed By: Elissa Ward RDCS, RVT 07/26/18 1711 Date Parrish Worrell MD CC: LINDA Reddy; Parrish Worrell MD Date Dictated: 07/25/18 1030 Date Transcribed: 07/26/181710 Custom Grinder: Signed ECHO, COMPLETE W/ Observed: 07/20/2018 Status: F Source: [place] CONTRAST 3:04 PM [facility] [facility] REPOSITORY [facility] Cardiovascular Services [address] [place] [address] Echo Complete W/ Contrast 07/20/18 1354 MR#: [id number] Acct: [id number] Name: TOBIAS VALLES Rep #: [id number] : 1960 58 From: Parrish Worrell MD Attending Dr: Parrish Worrell MD Status: REG CLI Ordering Dr: Parrish Worrell MD Date: 07/20/18 Location: [facility] Sex: F C Admitted: Reason For Study: [...] Dictated: 07/20/18 1354 Date Transcribed: 07/20/18 1504 Custom Grinder: Signed CARDIOLOGY VISIT Observed: 07/12/2018 Status: F Source: JULIO REPORT 2:44 PM [facility] REPOSITORY [facility] [address] [place] [address] OFFICE VISIT Date of Service: 07/12/18 MR#: [id number] Acct: [id number] Name: TOBIAS NAVARRO Rep #: [id number] : 1960 Provider: Parrish Worrell MD Age/Sex: 58/F Location: [facility] Status: Signed HPI HPI Chief Complaint: Dilated [...] H Intake Visit Reasons: CHF (MARTI REDDY) Food Handler Required: No Is patient in pain?: No [...] mg PO TID 07/12/18 [History Confirmed 07/12/18] [facility] Medical History Melanoma of left upper arm [...] mildly hypokinetic per echo 08/07/2016 done @ [facility] Plan 1. LV dysfunction: The patient was [...] Mild:RVSP 44mmhg per echo 08/07/2016 done @ [facility] Plan 2. Pulmonary hypertension: Given the patient's [...] Detail Other Orders Orders: Follow Up +6M (Gm) Coding Level of Care Code Off vis,new,level 4 Diagnoses Dilated cardiomyopathy I42.0 Secondary pulmonary hypertension Somnolence, daytime R40.0 Coding Level of Care Code Off vis,new,level 4 Diagnoses Dilated cardiomyopathy I42.0 Secondary pulmonary hypertension Somnolence, daytime R40.0 07/12/18 0782 <Electronically signed by Parrish Worrell MD> Date Parrish Worrell MD Cosigner Signature: Date (if applicable) CC: 12 LEAD EKG PERFORMED Observed: 07/12/2018 Status: F Source: JULIO BY [facility] 1:51 PM [facility] REPOSITORY [facility] [address] [place] [address] 12 Lead EKG performed by [facility] 07/12/18 1351 MR#: [id number] Acct: [id number] Name: TOBIAS VALLES Rep #: [id number] : 1960 58 From: Parrish Worrell MD Attending Dr: Parrish Worrell MD Status: DEP AMB Ordering Dr: Parrish Worrell MD Date: 07/12/18 [place] [facility] Sex: F C Admitted: BMS/12 Lead EKG performed by [facility] ECG Report Interpretation Sinus Rhythm - occasional ectopic ventricular beat -Possible old inferior infarctABNORMAL Electronically signed on 07/22/2018 at 15:34 by Parrish Worrell Software Version 8610 07/22/18 1541 Date Parrish Worrell MD CC: Date Dictated: 07/12/18 1351 Date Transcribed: 07/12/18 1351 Custom Grinder: Signed COMPREHENSIVE METABOLIC Collected: 07/09/2018 Status: F Source: JULIO PROFIL 11:05 AM [facility] REPOSITORY TYPE CODE TESTS RESULT OUT OF [...] GAP 7 Performed By: #### L500.4050 #### [facility] [address] [place], [address] OFFICE VISIT Observed: 07/07/2018 Status: F Source: [place] 2:47 PM [facility] REPOSITORY [facility] [address] [place], [place] [id number] OFFICE VISIT Date of Service: 07/06/18 MR#: [id number] Acct: [id number] Name: TOBIAS NAVARRO Rep #: [id number] : 1960 Provider: LINDA Reddy Age/Sex: 58/F Location: [facility] Status: Signed with Addenda ADDENDUM by LINDA Reddy on 07/07/18 at 1447 OFFICE PROCEDURES Office Procedure Documentation entered by VICENTE Hernandez 07/07/18 14:47: Office Meds cyanocobalamin (vit B-12) Performing Provider: VICENTE Hernandez Administered by: VICENTE Hernandez on 07/07/18 14:47 [address]ose [address] Admin Location Lot Number Expiration Date NDC Passenger Conductor 1,000 mcg IM L deotoid 7380 07/08/19 5552-6780-16 [employer] 07/07/18 1447 <Electronically signed by [...] get her breath and ended up in [facility] and diagnosed with CHF, since then everything has gone down hill . She is on lasix 80 mg 3 x a day for the swelling and she is still swollen. He dr draws blood every 3 months. Today she is cramping and hurting all over . She states had an echo done in [place] all normal and stress test normal states [...] E53.8 07/07/18 1440 <Electronically signed by Marti ZHANG> Date Marti ZHANG CC: LEONARDA W/DIFF, AUTOMATED Collected: 07/06/2018 Status: F Source: [place] 7:55 PM [facility] REPOSITORY TYPE CODE TESTS RESULT OUT OF [...] Lymph 1.84 Performed By: #### L100.0100 #### [facility] [address] [place], [place], [address] COMPREHENSIVE METABOLIC Collected: 07/06/2018 Status: C [facility] REPOSITORY TYPE CODE TESTS RESULT OUT OF [...] #### L500.4050, L501.9520, L503.6075, L503.6550, L505.7010 #### [facility] [address] [facility] [place], [place], [address] THYROID STIM HORMONE Collected: 07/06/2018 Status: F Source: [place] (TSH) 7:55 PM [facility] REPOSITORY TYPE CODE TESTS RESULT OUT OF RANGE REFERENCE UNITS LAB L501.9520 0.358-3.74 uIU/mL Normal TSH 1.52 Performed By: #### L500.4050, L501.9520, L503.6075, L503.6550, L505.7010 #### [facility] [address] [facility], [address] IRON BINDING Collected: 07/06/2018 Status: F Source: [facility] 7:55 PM [facility] REPOSITORY TYPE CODE TESTS RESULT OUT OF RANGE REFERENCE UNITS LAB L503.6075 250-450 ug/dL Normal TIBC 284 Performed By: #### L500.4050, L501.9520, L503.6075, L503.6550, L505.7010 #### [facility] [place], [place], [address] FERRITIN Collected: 07/06/2018 Status: F Source: [place] 7:55 PM [facility] REPOSITORY TYPE CODE TESTS RESULT OUT OF REFERENCE UNITS RANGE LAB L503.6550 8-252 ng/mL High FERRITIN 308 Performed By: #### L500.4050, L501.9520, L503.6075, L503.6550, L505.7010 #### [facility] [address] [place], [address] RHEUMATOID FACTOR Collected: 07/06/2018 Status: F Source: [place] 7:55 PM [facility] REPOSITORY TYPE CODE TESTS RESULT OUT OF REFERENCE UNITS RANGE LAB L505.7010 <15 IU/mL High RHEUMATOID FAC 290.0 Performed By: #### L500.4050, L501.9520, L503.6075, L503.6550, L505.7010 #### [facility] [address], [place], [address] ENRIQUETA W/ REFLEX MULT Collected: 07/06/2018 Status: F Source: JULIO CONFIRM 7:55 PM [facility] REPOSITORY TYPE CODE TESTS RESULT OUT OF RANGE REFERENCE UNITS LAB L3100.5475 Negative Normal Negative ENRIQUETA-DIRECT Result Comment: Performed at: - [facility] [address] [id number] Crm Architect: Laureano Nathan PhD, Phone: [phone] Performed By: #### L3100.5450 #### [facility] (refer to report for specific site) refer to report for address and phone number ALLERGIES ALLERGIES DATE TYPE / NAME / CODE REACTION SEVERITY SOURCE CODE 08/01/2018 Drug Penicillins/[id number] RASH AND SV Julio Allergy/41 6(RXNORM) SWELLING [facility] 7453261([facility]) Repository 08/01/2018 Drug hydrocodone/[id number] NAUSEA AND MO [facility] Allergy/41 4(RXNORM) VOMITING [facility] 2589314([facility]) Repository 08/01/2018 Drug acetaminophen/K113090 NAUSEA AND MO [place] Allergy/41 605(RXNORM) VOMITING [facility] 6591623([facility]) Repository 08/01/2018 Drug nitrofurantoin/P26111 RASH AND SV [place] Allergy/41 2852(RXNORM) SWELLING Community 6054775([facility]) Repository 08/01/2018 Drug azithromycin/L2220673 Chest pain, SV [place] Allergy/41 35(RXNORM) nausea Community 9800847([facility]) Repository 07/07/2018 Drug No Known Unknown [facility] Allergy/41 Allergies/[id number]( [facility] 4914429( [facility] Rep[facility] 10/26/2016 DRUG CARVEDILOL INTOLERANCE [address] Other 4254471([facility]) Repository 08/07/2016 DRUG AZITHROMYCIN GI UPSET [address] Other 4875956([facility]) Repository 05/28/2011 DRUG NITROFURANTOIN RASH [place] [address] MACROCRYST[facility]INE Clinic Other 8470230( [place] [facility]) Repository 05/28/2011 Drug PENICILLINS RASH [place] Class/4195 Clinic Other [address](SNOM [place] ED CT) Repository 05/28/2011 DRUG/96016 HYDROCODONE-ACETAMINO Vomiting [place] 1003(SNOME PHEN Clinic Other D CT) [place] Repository ENCOUNTERS ENCOUNTERS ADMIT/DISCHARGE ACCOUNT ADMITTING ENCOUNTER LOCATION SOURCE NUMBER CLASS 08/12/2018/08/12/19 [id number] Ambulatory [address] HospitalBuild Hospital ing:[facility] Repository 08/12/2018/08/12/19 [id number] Ambulatory BMSBuilding:W Julio [facility] Hospital Repository 08/01/2018 [id number] [facility] Hospital ing:RAD Repository 08/01/2018 [id number] Ambulatory BMSBuilding:B Julio [facility] Repository 08/01/2018/08/01/20 [id number] Ambulatory BMSBuilding:B Julio 18 [facility] Repository 07/27/2018 [id number] [facility] Repository 07/25/2018 [id number] Ambulatory BMSBuilding:[facility] Repository 07/25/2018 [id number] Ambulatory [facility] Hospitalild Hospital ing:[facility] Repository 07/20/2018 [id number] Ambulatory BMSBuilding:[facility] Repository 07/20/2018 [id number] Ambulatory [facility] HospitalBuild Hospital ing:[facility] Repository 07/12/2018/07/12/20 [id number] Ambulatory BMSBuilding:B [place] 18 [place].[facility] Repository 07/09/2018 [id number] Ambulatory [facility] HospitalBuild Hospital ing:[facility] Repository 07/06/2018 [id number] Ambulatory [facility] Hospital[facility] Hospital ing:[facility] Repository 05/30/2018 [id number] Ambulatory [facility] Other [place] Repository 05/23/2018 [id number] Ambulatory [facility] Other [place] Repository 05/16/2018 [id number] Ambulatory [facility] Other [place] Repository 05/09/[id number] [facility] [place] Repository 05/06/2018 [id number] [facility] Repository PAYERS PAYERS ENCOUNTER GUARANTOR PAYER SUBSCRIBER SOURCE 08/12/2018 TABITHA Primary [place] [id number] Insurance:ANTHEMPolic MILLNERDOB: Community PROSPECT y Number: [id number] [id number] Repository [address]Kpc: (330) ve Date:7218-89-64XQ [phone] () [id number] [place] [address]TL: 08/12/2018 Secondary NOT GIVENUNK Julio Insurance:SELF PAY [facility] Number: Effective Repository Date:2018-07-27 08/12/2018 TABITHA Primary [place] [id number] Insurance:ANTHEMPolic MILLNERDOB: Community PROSPECT y Number: [id number] [place], [place] [id number] Repository [address]Zpa: (330) ve Date:1352-15-80LS [phone] () [address] [place] [address]GH: 08/12/2018 Secondary NOT GIVENUNK [place] Insurance:SELF PAY [facility] Number: Effective Repository Date:2018-08-12 08/01/2018 TABITHA Primary [place] [id number] Insurance:ANTHEMPolic MILLNERDOB: Community PROSPECT y Number: [id number] [place], [place] [id number] Repository [address]Hgg: (330) ve Date:6232-31-96JM [phone] () [address]JMDZAHM, [place] [address]DD: 08/01/2018 Secondary NOT GIVENUNK Julio Insurance:SELF PAY [facility] Number: Effective Repository Date:2018-08-01 08/01/2018 TABITHA Primary [place] [id number] Insurance:ANTHEMPolic MILLNERDOB: Community PROSPECT y Number: [id number] [place], [place] [id number] Repository [address]Kei: (330) ve Date:9047-82-88GF [phone] () [address]OLRFCWO, [place] [address]CM: 08/01/2018 Secondary NOT GIVENUNK Julio Insurance:SELF PAY [facility]: Effective Repository Date:2018-08-01 08/01/2018 TABITHA Primary [place] [id number] Insurance:ANTHEMPolic MILLNERDOB: Community PROSPECT y Number: [id number] [place], [place] [id number] Repository [address]Dua: (330) ve Date:8369-57-01DI [phone] () [address]UMVIPPR, [place] [address]WL: 08/01/2018 Secondary NOT GIVENUNK Julio Insurance:SELF PAY [facility] Number: Effective Repository Date:2018-08-01 07/27/2018 TABITHA Primary TABITHAGracia [place] [id number] Insurance:ANTHEMPolic MILLNERDOB: Community PROSPECTMEDINA, y Number: [id number] Health Clinic [address]Opv: [id number] Repository ve Date:1575-94-10ID () [address]DPFCOMH, [place] [address]RY: 07/27/2018 Secondary NOT GIVENUNK [place] Insurance:SELF PAY [facility] Number: Effective Repository Date:2018-07-12 07/25/2018 TABITHA Primary TOBI[place] [id number] [address] Insurance:ANTHEMPolic MILLNERDOB: Community PROSPECT y Number: [id number] [place], [place] [id number] Repository [address]Zso: (330) ve Date:4150-00-47LK [phone] () [address]SFPNFJW, [place] [address]ED: 07/25/2018 Secondary NOT GIVENUNK Julio Insurance:SELF PAY [facility] Number: Effective Repository Date:2018-07-25 07/25/2018 TABITHA Primary TABITHAGracia [place] [id number] S Insurance:ANTHEMPolic MILLNERDOB: Community PROSPECT y Number: [id number] [place], [place] [id number] Repository [address]Ttx: (330) ve Date:5129-42-76BC [phone] () [address]UIXOYWU, [place] [address]ZL: 07/25/2018 Secondary NOT GIVENUNK Julio Insurance:SELF PAY [facility] Number: Effective Repository Date:2018-07-12 07/20/2018 TABITHA Primary TOBI[place] [id number] Insurance:ANTHEMPolic MILLNERDOB: Community PROSPECT y Number: [id number] [place], [place] [id number] Repository [address]Svb: (330) ve Date:1885-69-13MU [phone] () [address]QAWDZJV, [place] [address]XU: 07/20/2018 Secondary NOT GIVENUNK Jul[place] Insurance:SELF PAY [facility] Number: Effective Repository Date:2018-07-20 07/20/2018 TABITHA Primary [place]BI[place] [id number] [address] Insurance:ANTHEMPolic MILLNERDOB: Community PROSPECT y Number: [id number] [place], [place] [id number] Repository [address]Ezy: (330) ve Date:5374-78-47EZ [phone] () [address]CAUIBNN, [place] [address]VR: 07/20/2018 Secondary NOT GIVENUNK Jul[place] Insurance:SELF PAY [facility] Number: Effective Repository Date:2018-07-12 07/12/2018 JOSH Primary TOBIAS [place] [id number] [address] Insurance:ANTHEMPolic MILLNERDOB: Community PROSPECTMEDINA, y Number: [id number] Health Clinic [address]Saz: [id number] Repository ve Date:9778-08-56KS () [address]LMRUJXT, [place] [address]DF: 07/12/2018 Secondary NOT GIVENUNK [place] Insurance:SELF PAY [facility] Number: Effective Repository Date:2018-07-12 07/09/2018 TOBIAS BROWN Primary NOT GIVENUNK Julio [id number] Insurance:SELF PAY [facility] [address]Qok: Number: Effective Repository Date:2018-07-09 () 07/06/2018 JOSH Primary JOSHKEVIN [id number] Insurance:ANTHEMPolic MILNERDOB: [facility] PROSPECTITTA BENA, y Number: [id number] Health Clinic [address]Dth: [id number] Repository ve Date:8168-31-99IK () [facility] [address]209[address]XTSAFVF, [place] [address]KE: 07/06/2018 Secondary NOT GIVENUNK [place] Insurance:SELF PAY [facility] Number: Effective Repository Date:2018-07-06
== END ==
PROVIDERS: Family Provider Nurse Practitioner; PCP Nurse Practitioner; Referring Provider Internal Medicine Cardiovascular Disease; Visit Provider Internal Medicine Cardiovascular Disease
DX: I42.0 Dilated cardiomyopathy (principal); I50.9 Heart failure, unspecified
CPT/HCPCS: 93306; Q9957; A4216; C8929

== ENCOUNTER → 2018-07-25 10:09 | Outpatient (CLI) | payer BC, SELFPAY ==
[2018-07-12 14:03] VITALS: BMI 44.4
--- NOTE | 2018-07-25 10:11 | STEWCON_ITS ---
Reason For Study: CHF Stress Results Maximum Predicted HR: 160 bpm Target HR: 136 bpm % Maximum Predicted HR: 97 % DurationHeart Rate Stage (mm:ss) (bpm) BP Comment BASELINE 93 162/821CC DEFINITY,SL SOB WITH AMBULATING TO ROOM PRE PROCEDURE STAGE 1 2:30 155 168/841CC DEFINITY, INCREASED SOB RECOVERY 96 138/88SOB RESOLVED Stress Duration: 2:30 mm:ss Maximum Stress HR: 155 bpm Baseline Echocardiogram Findings The estimated ejection fraction is 60 %. Stress Echo Wall motion Data Resting WM Intermediate WM Stress WM Resting Wall Motion Wall Motion Stress No regional wall motion No regional wall motion abnormalities noted. abnormalities noted. EKG Data The baseline ECG displays normal sinus rhythm. The patient exercised according to the regular Main protocol for a total duration of 2:30. The maximum heart rate attained was 155 beats per minute. This was 96% of maximum predicted heart rate. The patient exercised into stage 1 of the Main protocol. During stress, there were no ST or T wave changes noted to suggest ischemia. No clinical angina was noted. Interpretation Summary The study was technically limited. Contrast injection was performed. The estimated ejection fraction is 60 %. Normal, adequate, treadmill echocardiogram. Negative for ischemia by EKG and echocardiographic criteria. No anginal symptoms noted. Rare PVCs noted. Hypertensive blood pressure response to exercise. Very poor exercise capacity for age. Decreased sensitivity due to failure poor echo windows requiring Definity agent. Final LVEF of 65%. Recommend clinical correlation or alternative mode of testing if coronary ischemia is strongly suspected. No complications. Ordering Physician: Parrish Worrell Referring Physician: Parrish Worrell Performed By: Elissa Ward, RDCS, RVT
--- OUTSIDE RECORDS SUMMARY | 2018-10-26 23:04 | XMS RPT_ITS ---
:1960 Author Organization OHIP Support Name Relationship Address Phone JAMIL VALLES Unavailable [address] + [place] [address] S Unavailable Unavailable Unavailable REENA JAMIL Unavailable [address] + [place] [address] S Unavailable Unavailable Unavailable REENA, JAMIL Unavailable [address] + [place] [address] S Unavailable Unavailable Unavailable REENA, JAMIL Unavailable [address] + [place] [address] S Unavailable Unavailable Unavailable REENA, JAIML Unavailable [address] + [place] [address] S Unavailable Unavailable Unavailable REENA, JAMIL Unavailable [address] + [place] [address] S Unavailable Unavailable Unavailable REENA, JAMIL Unavailable [address] + [place] [address] S Unavailable Unavailable Unavailable REENA, JAMIL Unavailable [address] + [place] [address] S Unavailable Unavailable Unavailable REENA, JAMIL Unavailable [address] + [place] [address] S Unavailable Unavailable Unavailable REENA, JAMIL Unavailable [address] + [place] [address] S Unavailable Unavailable Unavailable U Unavailable Unavailable Unavailable U Unavailable Unavailable Unavailable U Unavailable Unavailable Unavailable Care Team Providers Name Role Phone Parrish Worrell Attending Unavailable Parrish Worrell Referring Unavailable Marti Reddy JOINT SEALER-C Primary Care Unavailable Gerda Breaux Attending Unavailable Marti Reddy JOINT SEALER-C Referring Unavailable Carley Stone Attending Unavailable Parrish Worrell Attending Unavailable Parrish Worrell Referring Unavailable Marti Reddy JOINT SEALER-C Primary Care Unavailable Parrish Worrell Attending Unavailable Parrish Worrell Referring Unavailable Parrish Worrell Attending Unavailable Parrish Worrell Referring Unavailable Parrish Worrell Attending Unavailable Parrish Worrell Referring Unavailable Reddy, Marti JOINT SEALER-C Attending Unavailable Reddy, Marti JOINT SEALER-C Referring Unavailable Reddy, Marti JOINT SEALER-C Attending Unavailable Parrish Worrell Attending Unavailable Parrish Worrell Attending Unavailable Parrish Worrell Referring Unavailable Reddy, Marti JOINT SEALER-C Primary Care Unavailable Parrish Worrell Attending Unavailable Parrish Worrell Referring Unavailable Reddy, Marti JOINT SEALER-C Primary Care Unavailable Parrish Worrell Attending Unavailable Parrish Worrell Referring Unavailable Reddy, Marti JOINT SEALER-C Primary Care Unavailable LOPEZ, GRACE Referring Unavailable LOPEZ, GRACE Referring Unavailable LOPEZ, GRACE Referring Unavailable LOPEZ, GRACE Referring Unavailable LOPEZ, GRACE Referring Unavailable PROBLEMS PROBLEMS DATE TYPE CONDITION / CODE ATTENDING STATUS SOURCE 08/12/2018 Unknown I34.0 - Nonrheumatic Parrish Worrell Active [facility] mitral (valve) Community insufficiency / Hospital I34.0(ICD-10) Repository 08/12/2018 Unknown I42.0 - Dilated Worrell Parrish Active [facility] cardiomyopathy / Community I42.0(ICD-10) Hospital Repository 08/12/2018 Unknown I51.9 - Heart Parrish Worrell Active [place] disease, unspecified Community / I51.9(ICD-10) Hospital Repository 08/12/2018 Unknown R06.09 - Other forms Parrish Worrell Active [facility] of dyspnea / Community R06.09(ICD-10) Hospital Repository 08/12/2018 Unknown R94.39 - Abnormal Parrish Worrell Active [facility] result of other [facility] cardiovascular Hospital function study / Repository R94.39(ICD-10) 08/12/2018 Unknown D64.9 - Anemia, Parrish Worrell Active [facility] unspecified / Community D64.9(ICD-10) Hospital Repository 08/12/2018 Unknown E61.1 - Iron Parrish Worrell Active [facility] deficiency / Community E61.1(ICD-10) Hospital Repository 08/12/2018 Unknown I50.9 - Heart Worrell Parrish Active [facility] failure, unspecified Community / I50.9(ICD-10) Hospital Repository 07/12/2018 Unknown R40.0 - Somnolence / Parrish Worrell Active [facility] R40.0(ICD-10) [facility] Hospital Repository 07/07/2018 Unknown M25.40 - Effusion, Reddy, Active [facility] unspecified joint / Marti JOINT SEALER-C Community M25.40(ICD-10) Hospital Repository 07/07/2018 Unknown E03.9 - Clint, Active [facility] Hypothyroidism, Marti JOINT SEALER-C Community unspecified / Hospital E03.9(ICD-10) Repository 05/06/2018 Active Anemia, unspecified NA Active [facility] / D64.9(ICD-10) Clinic Other [place] Repository PROCEDURES PROCEDURES No Procedure Records FoundRESULTS RESULTS SEDIMENTATION RATE, Collected: 08/30/2018 Status: F Source: [place] ERYTHROCYTE 11:33 AM HOSPITALS REPOSITORY TYPE CODE TESTS RESULT OUT OF REFERENCE UNITS RANGE LAB ESRWS(LOIN 0 - 30 mm/h C) SEDIMENTATION RATE, ERYTHROCYTE 18 Performed By: #### ESRWS #### [facility] [address] [place] [address] CBC AND DIFFERENTIAL Collected: 08/30/2018 Status: F Source: [place] 11:33 [facility] REPOSITORY TYPE CODE TESTS RESULT OUT OF [...] 0.03 Performed By: #### CBCDF #### [facility] [address] [place] [address] HEPATITIS B SURF AB Collected: 08/30/2018 Status: F Source: [address] REPOSITORY TYPE CODE TESTS RESULT OUT OF RANGE REFERENCE UNITS LAB HABF2(LOINC <10 mIU/mL ) HEP B < 3.1 SURF AB Result Comment: INTERPRETIVE CRITERIA: <10 mIU/mL....NONREACTIVE >=10 mIU/mL...REACTIVE . Patients receiving more than 5 mg/day of biotin may have interference in test results. A sample should be taken no sooner than eight hours after previous dose. Contact [phone] for additional information. LAB SOURCE(LOINC) Lab Specimen Source Performed By: #### HBAB3 #### [facility] [address] [place] [id number] HEPATITIS B SURFACE AG Collected: 08/30/2018 Status: F Source: [address] REPOSITORY TYPE CODE TESTS RESULT OUT OF REFERENCE UNITS RANGE LAB HAGFN(LOIN NONREACTIVE C) HEP.B SURFACE NONREACTIVE AG Result Comment: Patients receiving more than 5 mg/day of biotin may have interference in test results. A sample should be taken no sooner than eight hours after previous dose. Contact [phone] for additional information. LAB SOURCE(LOINC) Lab Specimen Source Performed By: #### HBSAG #### [facility] [address] [place] [address] C-REACTIVE PROTEIN Collected: 08/30/2018 Status: F Source: [place] 11:33 AM [facility] REPOSITORY TYPE CODE TESTS RESULT OUT OF RANGE REFERENCE UNITS LAB CRP(LOINC) mg/dL Abnormal C-REACTIVE 1.73 PROTEIN Result Comment: REF VALUE < 1.00 LAB SOURCE(LOINC) Lab Specimen Source Performed By: #### CRP #### [facility] [address] [place] [address] COMPREHENSIVE PANEL Collected: 08/30/2018 Status: F Source: [place] 11:33 [facility] REPOSITORY TYPE CODE TESTS RESULT OUT OF [...] Specimen Source Performed By: #### CMP #### [facility] [address] [place] [address] RHEUMATOID FACTOR Collected: 08/30/2018 Status: F Source: [place] 11:33 [facility] REPOSITORY TYPE CODE TESTS RESULT OUT OF REFERENCE UNITS RANGE LAB RF(LOINC) 0 - 15 IU/mL High RHEUMATOID 115 FACTOR LAB SOURCE(REZA NC) Lab Specimen Source Performed By: #### RF #### [facility] [address] [place] [address] CITRULLINE ANTIBODY Collected: 08/30/2018 Status: F Source: [place] 11:33 [facility] REPOSITORY TYPE CODE TESTS RESULT OUT OF RANGE REFERENCE UNITS LAB CITAB(LOIN U/ML C) Abnormal CITRULLINE >300 ANTIBODY Result Comment: THE TEST FOR ANTIBODIES SPECIFIC FOR CYCLIC CITRULLINATED PEPTIDE (CCP) HAS SHOWN TO BE VALUABLE IN THE DIAGNOSIS OF RHEUMATOID ARTHRITIS. THE DIAGNOSTIC VALUE OF ANTIBODIES TO CCP IN JUVENILE RHEUMATOID ARTHRITIS PATIENTS HAS NOT BEEN DETERMINED. ANTIBODIES TO CENTROMERE OR SS-A AND MYELOMA IGG MAY BE REACTIVE IN THIS ASSAY. REF VALUES NEGATIVE < 3 U/ML POSITIVE >=3 U/ML Performed By: #### CITAB #### [facility] [address] [place] [address] BLOOD GASES BY CPS Collected: 08/12/2018 Status: F Source: [place] 10:38 AM [facility] REPOSITORY TYPE CODE TESTS RESULT OUT OF [...] ISTAT 89 Performed By: #### L9000.0800 #### [facility] Point of Care [address] [place], [place] [address] VENOUS BLOOD GAS Collected: 08/12/2018 Status: F Source: [place] 10:33 AM [facility] REPOSITORY TYPE CODE TESTS RESULT OUT OF [...] 26 ISTAT Performed By: #### L9000.0810 #### [facility] Point of Care [address] [place], [place] [address] VENOUS BLOOD GAS Collected: 08/12/2018 Status: F Source: [place] 10:30 AM [facility] REPOSITORY TYPE CODE TESTS RESULT OUT OF [...] 25 ISTAT Performed By: #### L9000.0810 #### [facility] Point of Care [address] [place], [place] [address] CBC-COMPLETE BLOOD CNT Collected: 08/12/2018 Status: F Source: [place] NO DIFF 8:39 AM [facility] REPOSITORY TYPE CODE TESTS RESULT OUT OF [...] MPV 9.8 Performed By: #### L100.0500 #### [facility] [address] [facility]. [place], [place], [address] PROTHROMBIN TIME W/INR Collected: 08/12/2018 Status: F Source: [place] 8:39 AM [facility] REPOSITORY TYPE CODE TESTS RESULT OUT OF RANGE REFERENCE UNITS LAB L300.4150 11.7-14.9 SECONDS Normal PROTIME 12.8 LAB L300.4200 Normal INR 1.0 Performed By: #### L300.3900, L300.4310 #### [facility] [address] [facility] [place], [address] PARTIAL THROMBOPLAST Collected: 08/12/2018 Status: F Source: [place] TIME 8:39 AM [facility] REPOSITORY TYPE CODE TESTS RESULT OUT OF RANGE REFERENCE UNITS LAB L300.4310 24.1-36.2 Seconds Normal PTT 30.9 Performed By: #### L300.3900, L300.4310 #### [facility] [address] [place], [address] BASIC METABOLIC Collected: 08/12/2018 Status: F Source: [place] PROFILE (BMP) 8:39 AM [facility] REPOSITORY TYPE CODE TESTS RESULT OUT OF [...] GAP 8 Performed By: #### L500.2500 #### [facility] [address] [facility] [place], [address] CARDIOLOGY VISIT Observed: 08/04/2018 Status: F Source: [place] REPORT 4:59 PM [facility] REPOSITORY [facility] [address] [facility] [place] [address] OFFICE VISIT Date of Service: 08/01/18 MR#: [id number] Acct: [id number] Name: TOBIAS VALLES Rep #: [id number] : 1960 Provider: Gerda Breaux Age/Sex: 58/F [place] [facility] [place]: Signed HPI HPI Details: TOBIAS VALLES, is a 58 F who presents to the office today for an updated history and physical for an upcoming heart catheterization. Patient recently established with us when she was diagnosed with LV dysfunction and pulmonary hypertension. In 2016 she had congestive heart failure that time [...] stress test R94.39 Dilated cardiomyopathy I42.0 08/04/18 1659 <Electronically signed by Gerda RANDALL> Date Gerda RANDALL Cosigner Signature: Date (if applicable) CC: CBC-COMPLETE BLOOD CNT Collected: 08/01/2018 Status: F Source: [place] NO DIFF 11:50 AM [facility] REPOSITORY Order Comment: Comments: For heart cath [...] MPV 10.2 Performed By: #### L100.0500 #### [facility] [address] [place], [address] PROTHROMBIN TIME W/INR Collected: 08/01/2018 Status: F Source: [place] 11:50 AM [facility] REPOSITORY TYPE CODE TESTS RESULT OUT OF RANGE REFERENCE UNITS LAB L300.4150 11.7-14.9 SECONDS Normal PROTIME 12.5 LAB L300.4200 Normal INR 0.9 Performed By: #### L300.3900, L300.4310 #### [facility] [address] [facility] [address] PARTIAL THROMBOPLAST Collected: 08/01/2018 Status: F Source: [place] TIME 11:50 AM [facility] REPOSITORY TYPE CODE TESTS RESULT OUT OF RANGE REFERENCE UNITS LAB L300.4310 24.1-36.2 Seconds Normal PTT 29.3 Performed By: #### L300.3900, L300.4310 #### [facility] [address] [facility] [address] BASIC METABOLIC Collected: 08/01/2018 Status: F Source: [place] PROFILE (BMP) 11:50 AM [facility] REPOSITORY Order Comment: Comments: For heart cath [...] GAP 8 Performed By: #### L500.2500 #### [facility] [address] [place], [address] CHEST PA AND LATERAL Observed: 08/01/2018 Status: F Source: [place] 11:11 AM [facility] REPOSITORY [facility] Imaging Services [address] [place] [address] Chest PA and Lateral MR#: [id number] Acct: [id number] Name: TOBIAS VALLES Rep #: [id number] : 1960 F 58 From: Babatunde Araujo MD PCP: Marti Reddy NP Status: REG CLI Study: Chest PA and Lateral Date of Exam: 08/01/18 Exam# [id number] Ordering Dr: Parrish Worrell MD STUDY: X-RAY [...] , CC: LINDA Reddy; Parrish Worrell MD Arborist Climber: Signed STRESS TEST ECHO W/ Observed: 07/26/2018 Status: F Source: [place] CONTRAST 5:12 PM [facility] REPOSITORY [facility] Cardiovascular Services [address] [place] [address] Stress Test Echo W/Contrast MR#: [id number] Acct: [id number] Name: TOBIAS VALLES Rep #: [id number] : 1960 58 From: Parrish Worrell MD [...] Referring Physician: Parrish Worrell Performed By: Elissa Ward, KATARZYNA, RVT 07/26/181710 Date Parrish Worrell MD CC: LINDA Reddy; Parrish Worrell MD Date Dictated: 07/25/18 1030 Date Transcribed: 07/26/181710 Arborist Climber: Signed ECHO, COMPLETE W/ Observed: 07/20/2018 Status: F Source: [place] CONTRAST 3:04 PM [facility] REPOSITORY [facility] Cardiovascular Services [address] [place] [address] Echo Complete W/ Contrast 07/20/18 1354 MR#: [id number] Acct: [id number] Name: TOBIAS VALLES Rep #: [id number] : 1960 58 From: Parrish Worrell MD Attending Dr: Parrish Worrell MD Status: REG CLI Ordering Dr: Parrish Worrell MD Date: 07/20/18 Location: [facility] Sex: F C Admitted: Reason For [...] Contrast injection was performed. Ordering Physician: Parrish Wrorell Referring Physician: Parrish Worrell Performed By: Gonzalez Kingsley RCS 07/20/18 1504 Date Parrish Worrell MD CC: LINDA Reddy; Parrish Worrell MD Date Dictated: 07/20/18 1354 Date Transcribed: 07/20/18 1504 Arborist Climber: Signed CARDIOLOGY VISIT Observed: 07/12/2018 Status: F Source: [place] REPORT 2:44 PM [facility] REPOSITORY [facility] [address] [place] [address] OFFICE VISIT Date of Service: 07/12/18 MR#: [id number] Acct: [id number] Name: TOBIAS NAVARRO Rep #: [id number] : 1960 Provider: Parrish Worrell MD Age/Sex: 58/F [place] [facility] Status: Signed HPI HPI Chief Complaint: Dilated [...] H Intake Visit Reasons: CHF (MARTI REDDY) Jackscrew Worker Required: No Is patient in pain?: No [...] mg PO TID 07/12/18 [History Confirmed 07/12/18] [facility] Medical History Melanoma of left upper arm [...] mildly hypokinetic per echo 08/07/2016 done @ [facility] Plan 1. LV dysfunction: The patient [...] echo 08/07/2016 done @ [facility] Plan 2. Pulmonary hypertension: Given the [...] Observed: 07/12/2018 Status: F Source: [place] BY [facility] 1:51 PM [facility] REPOSITORY [facility] [address] [place] [address] 12 Lead EKG performed by [facility] 07/12/18 1351 MR#: [id number] Acct: [id number] Name: TOBIAS VALLES Rep #: [id number] : 1960 58 From: Parrish Worrell MD Attending Dr: Parrish Worrell MD Status: DEP AMB Ordering Dr: Parrish Worrell MD Date: 07/12/18 [place] [facility] Sex: F C Admitted: [facility]/12 Lead EKG performed by [facility] ECG Report Interpretation Sinus Rhythm - occasional ectopic ventricular beat -Possible old inferior infarctABNORMAL Electronically signed on 07/22/2018 at 15:34 by Parrish Worrell Software Version 8610 07/22/18 1541 Date Parrish Worrell MD CC: Date Dictated: 07/12/18 1351 Date Transcribed: 07/12/18 1351 Arborist Climber: Signed COMPREHENSIVE METABOLIC Collected: 07/09/2018 Status: F Source: [place] 11:05 AM [facility] REPOSITORY TYPE CODE TESTS RESULT OUT OF [...] GAP 7 Performed By: #### L500.4050 #### [facility] [address] [place], [address] OFFICE VISIT Observed: 07/07/2018 Status: F Source: [place] 2:47 PM [facility] REPOSITORY [facility] [address] [place] [address] OFFICE VISIT Date of Service: 07/06/18 MR#: [id number] Acct: [id number] Name: TOBIAS NAVARRO Rep #: [id number] : 1960 Provider: LINDA Reddy Age/Sex: 58/F Location: F Status: Signed with Addenda ADDENDUM by LINDA Reddy on 07/07/18 at 1557 OFFICE PROCEDURES Office Procedure Documentation entered by VICENTE Hernandez 07/07/18 14:47: Office Meds cyanocobalamin (vit B-12) Performing Provider: VICENTE Hernandez Administered by: VICENTE Hernandez on 07/07/18 14:47 Dose Route Admin Location Lot Number Expiration Date NDC Paste Worker 1,000 mcg IM L deotoid 7380 07/08/19 [id number] [employer] 07/07/18 1447 <Electronically signed by [...] get her breath and ended up in [facility] and diagnosed with CHF, since then everything has gone down hill . She is on lasix 80 mg 3 x a day for the swelling and she is still swollen. He dr draws blood every 3 months. Today she is cramping and hurting all over . She states had an echo done in [place] all normal and stress test normal states [...] E53.8 07/07/18 1440 <Electronically signed by Marti Reddy NP-C> Date Marti GIMENEZC CC: CBC W/DIFF, AUTOMATED Collected: 07/06/2018 Status: F Source: [place] 7:55 PM [facility] REPOSITORY TYPE CODE TESTS RESULT OUT OF [...] Lymph 1.84 Performed By: #### L100.0100 #### [facility] [place], [address] COMPREHENSIVE METABOLIC Collected: 07/06/2018 Status: C Source: [facility]IO [facility] 7:55 PM [facility] REPOSITORY TYPE CODE TESTS RESULT OUT OF [...] #### L500.4050, L501.9520, L503.6075, L503.6550, L505.7010 #### [facility] [address] [place], [place], [address] THYROID STIM HORMONE Collected: 07/06/2018 Status: F Source: [place] (TSH) 7:55 PM [facility] REPOSITORY TYPE CODE TESTS RESULT OUT OF RANGE REFERENCE UNITS LAB L501.9520 0.358-3.74 uIU/mL Normal TSH 1.52 Performed By: #### L500.4050, L501.9520, L503.6075, L503.6550, L505.7010 #### [facility] [address] [place], [place], [address] IRON BINDING Collected: 07/06/2018 Status: F Source: [place] CAPACITY,TOTAL 7:55 PM [facility] REPOSITORY TYPE CODE TESTS RESULT OUT OF RANGE REFERENCE UNITS LAB L503.6075 250-450 ug/dL Normal TIBC 284 Performed By: #### L500.4050, L501.9520, L503.6075, L503.6550, L505.7010 #### [facility] [address] [place], [place], [address] FERRITIN Collected: 07/06/2018 Status: F Source: [place] 7:55 PM [facility] REPOSITORY TYPE CODE TESTS RESULT OUT OF REFERENCE UNITS RANGE LAB L503.6550 8-252 ng/mL High FERRITIN 308 Performed By: #### L500.4050, L501.9520, L503.6075, L503.6550, L505.7010 #### [facility] [address] [place], [place], [address] RHEUMATOID FACTOR Collected: 07/06/2018 Status: F Source: [place] 7:55 PM [facility] REPOSITORY TYPE CODE TESTS RESULT OUT OF REFERENCE UNITS RANGE LAB L505.7010 <15 IU/mL High RHEUMATOID FAC 290.0 Performed By: #### L500.4050, L501.9520, L503.6075, L503.6550, L505.7010 #### [facility] [address] [place], [place], [address] ENRIQUETA W/ REFLEX MULT Collected: 07/06/2018 Status: F Source: [facility] 7:55 PM [facility] REPOSITORY TYPE CODE TESTS RESULT OUT OF RANGE REFERENCE UNITS LAB L3100.5475 Negative Normal Negative ENRIQUETA-DIRECT Result Comment: Performed at: - [facility] [address] [id number] National Sales Manager: Laureano Nathan PhD, Phone: [phone] Performed By: #### L3100.5450 #### [facility] (refer to report for specific site) refer to report for address and phone number ALLERGIES ALLERGIES DATE TYPE / NAME / CODE REACTION SEVERITY SOURCE CODE 08/01/2018 Drug Penicillins/[id number] RASH AND SV [facility] Allergy/41 6(RXNORM) SWELLING [facility] [id number]([facility]) Repository 08/01/2018 Drug hydrocodone/[id number] NAUSEA AND MO [place] Allergy/41 4(RXNORM) VOMITING [facility] 6571434([facility]) Repository 08/01/2018 Drug acetaminophen/F769086 NAUSEA AND MO [place] Allergy/41 605(RXNORM) VOMITING [facility] 1231021([facility]) Repository 08/01/2018 Drug nitrofurantoin/F10160 RASH AND SV [facility] Allergy/41 2852(RXNORM) SWELLING [facility] 8692939([facility]) Repository 08/01/2018 Drug azithromycin/P4811201 Chest pain, SV [facility] Allergy/41 35(RXNORM) nausea Community 9003418( [facility]) Repository 07/07/2018 Drug No Known Unknown [facility] Allergy/41 Allergies/[id number]( Community 7134317( RXNORM) Hospital O[facility]) Repository 10/26/2016 DRUG CARVEDILOL INTOLERANCE [facility] INGREDI/41 Clinic Other 6926850([facility] OMED [facility]) Repository 08/07/2016 DRUG AZITHROMYCIN GI UPSET [facility] INGREDI/41 Clinic Other 2605087([facility] OMED CT) Repository 05/28/2011 DRUG NITROFURANTOIN RASH [facility] INGREDI/41 MACROCRYSTALLINE Clinic Other 3271890([facility] OMED CT) Repository 05/28/2011 Drug PENICILLINS RASH [facility] Class/4195 Clinic Other 25583([facility] ED CT) Repository 05/28/2011 DRUG/65224 HYDROCODONE-ACETAMINO Vomiting [facility] 1003(OME PHEN Clinic Other D CT) [place] Repository ENCOUNTERS ENCOUNTERS ADMIT/DISCHARGE ACCOUNT ADMITTING ENCOUNTER LOCATION SOURCE NUMBER CLASS 08/12/2018/08/12/19 [id number] Ambulatory [address] ing:[facility]SP Repository 08/12/2018/08/12/19 [id number] Ambulatory BMSBuilding:W [facility] Repository 08/01/2018 [id number] [facility] Hospital ing:RAD Repository 08/01/2018 [id number] Ambulatory BMSBuilding:[facility] Repository 08/01/2018/08/01/20 [id number] Ambulatory BMSBuilding:B [facility] [address] [facility] Repository 07/27/2018 [id number] Ambulatory [facility] Hospital ing:PSN Repository 07/25/2018 [id number] Ambulatory BMSBuilding:W [facility] Repository 07/25/2018 [id number] Ambulatory [facility] Hospital ing:[facility] Repository 07/20/2018 [id number] Ambulatory BMSBuilding:[facility] Repository 07/20/2018 [id number] [facility] Repository 07/12/2018/07/12/20 [id number] Ambulatory BMSBuilding:Zoltan Kim [address] [facility] Repository 07/09/2018 [id number] Ambulatory [facility] ing:[facility] Repository 07/06/2018 [id number] Ambulatory [facility] ing:[facility] Repository 05/30/2018 [id number] Ambulatory [facility] Other [place] Repository 05/23/2018 [id number] Ambulatory [facility] Rep[facility] 05/16/2018 [id number] [facility] Rep[facility] 05/09/2018 [id number] [facility] Rep[facility] 05/06/2018 [id number] [facility] Repository PAYERS PAYERS ENCOUNTER GUARANTOR PAYER SUBSCRIBER SOURCE 08/12/2018 TABITHA Primary TOBIAS Kim [id number] S Insurance:ANTHEMPolic MILLNERDOB: Community PROSPECT y Number: [id number]'s Hospital of San [id number] Repository [address]Xzf: 330) ve Date:7462-27-57CI [phone] () [address], [place] [address]XN: 08/12/2018 Secondary NOT GIVENUNK Julio Insurance:SELF PAY [facility] Number: Effective Repository Date:2018-07-27 08/12/2018 TABITHA Primary TOBIAS Kim [id number] S Insurance:ANTHEMPolic MILLNERDOB: Community PROSPECT y Number: [id number]'s Hospital of San [id number] Repository [address]Cnd: (330) ve Date:5954-11-82WC [phone] () [address], [place] [address]ZL: 08/12/2018 Secondary NOT GIVENUNK [place] Insurance:SELF PAY [facility] Number: Effective Repository Date:2018-08-12 08/01/2018 TABITHA Primary TOBIAS Kim [id number] S Insurance:ANTHEMPolic MILLNERDOB: Community PROSPECT y Number: [id number] [id number] Repository [address]Jyr: (330) ve Date:6665-20-85ME [phone] () [address], [place] [address]RP: 08/01/2018 Secondary NOT GIVENUNK [place] Insurance:SELF PAY [facility] Number: Effective Repository Date:2018-08-01 08/01/2018 TABITHA Primary TABITHA Julio [id number] S Insurance:ANTHEMPolic MILLNERDOB: Community PROSPECT y Number: [id number], [place] [id number] Repository [address]Dry: (330) ve Date:8013-81-20XX [phone] () [address]BM, [place] [address]KS: 08/01/2018 Secondary NOT GIVENUNK Julio Insurance:SELF PAY [facility] Number: Effective Repository Date:2018-08-01 08/01/2018 TABITHA Primary TABITHA Julio [id number] S Insurance:ANTHEMPolic MILLNERDOB: Community PROSPECT y Number: [id number], [place] [id number] Repository [address]Dnq: (330) ve Date:7263-01-36VS [phone] () [address], [place] [address]VE: 08/01/2018 Secondary NOT GIVENUNK Jul[place] Insurance:SELF PAY [facility] Number: Effective Repository Date:2018-08-01 07/27/2018 TABITHA Primary TABITHA Julio [id number] S Insurance:ANTHEMPolic MILLNERDOB: Community PROSPECTMEDINA, y Number: [id number] Indian Health Center [address]Gls: [id number] Repository ve Date:9307-17-78QI () [address], [place] [address]JR: 07/27/2018 Secondary NOT GIVENUNK [place] Insurance:SELF PAY [facility] Number: Effective Repository Date:2018-07-12 07/25/2018 TABITHA Primary TABITHA [place] [id number] S Insurance:ANTHEMPolic MILLNERDOB: Community PROSPECT y Number: [id number], [place] [id number] Repository [address]Mbp: (330) ve Date:2052-87-10LD [phone] (HP) [address]WWOBJWFYOJANA [address] [address]YE: 07/25/2018 Secondary NOT GIVENUNK Julio Insurance:SELF PAY [facility] Number: Effective Repository Date:2018-07-25 07/25/2018 TABITHA Primary TABITHAGracia Kim [id number] S Insurance:ANTHEMPolic MILLNERDOB: Community PROSPECT y Number: [id number], [place] [id number] Repository [address]Pxg: (330) ve Date:8157-69-99KV [phone] () [address]HBDFEUH, [place] [address]DE: 07/25/2018 Secondary NOT GIVENUNK Jul[place] Insurance:SELF PAY [facility] Number: Effective Repository Date:2018-07-12 07/20/2018 TABITHA Primary TABITHAGracia Kim [id number] S Insurance:ANTHEMPolic MILLNERDOB: Community PROSPECT y Number: [id number], [place] [id number] Repository [address]Dfs: (330) ve Date:0910-63-15RD [phone] () [address]A[place]YNJY, [place] [address]EW: 07/20/2018 Secondary NOT GIVENUNK [place] Insurance:SELF PAY [facility] Number: Effective Repository Date:2018-07-20 07/20/2018 TABITHA Primary TABITHAGracia Kim [id number] S Insurance:ANTHEMPolic MILLNERDOB: Community PROSPECT y Number: [id number], [place] [id number] Repository [address]Dlz: (330) ve Date:9514-39-86CF [phone] () [address]EUOELCG, [place] [address]EH: 07/20/2018 Secondary NOT GIVENUNK Jul[place] Insurance:SELF PAY [facility] Number: Effective Repository Date:2018-07-12 07/12/2018 TOBIAS BROWN Primary TOBIAS [id number] [address] Insurance:ANTHEMPolic MILLNERDOB: Community PROSPECTMEDINA, y Number: [id number] Indian Health Center [address]Spw: [id number] Repository ve Date:6094-84-09NK () [address] [address]QW: 07/12/2018 Secondary NOT GIVENUNK [place] Insurance:SELF PAY [facility] Number: Effective Repository Date:2018-07-12 07/09/2018 TOBIAS BROWN Primary NOT GIVENUNK Julio [id number] S Insurance:SELF PAY [facility] [id number]: Number: Effective Repository Date:2018-07-09 () 07/06/2018 JOSH Primary TOBIAS [id number] Insurance:ANTHEMPolic MILNERDOB: Community PROSPECTMEDINA, y Number: [id number] Indian Health Center [address]Iur: [id number] Repository ve Date:7990-15-93MP () [address]NVSUZVQ, [place] [address]FB: 07/06/2018 Secondary NOT GIVENUNK Jul[place] Insurance:SELF PAY [facility] Number: Effective Repository Date:2018-07-06
== END ==
PROVIDERS: Family Provider Nurse Practitioner; PCP Nurse Practitioner; Referring Provider Internal Medicine Cardiovascular Disease; Visit Provider Internal Medicine Cardiovascular Disease
DX: I42.0 Dilated cardiomyopathy (principal); I34.0 Nonrheumatic mitral (valve) insufficiency; I50.9 Heart failure, unspecified
CPT/HCPCS: 93017; 93350; Q9957; A4216; C8928

== ENCOUNTER → 2018-08-01 11:10 | Outpatient (CLI) | payer BC, SELFPAY ==
[2018-08-01 11:09] VITALS: BMI 44.4
--- NOTE | 2018-08-01 11:11 | RAD_ITS ---
STUDY: X-RAY CHEST REASON FOR EXAM: Female, 58 years old. Preadmission testing for heart catheter. Shortness of breath. History of asthma, COPD, emphysema. TECHNIQUE: PA and lateral views of the chest. COMPARISON: None. FINDINGS: The lungs are clear and normally expanded. There is no demonstrated pleural abnormality. The heart size is upper normal Normal mediastinum and zahra. Normal visualized pulmonary arteries. Normal visualized aortic arch and descending thoracic aorta. There are mild multilevel degenerative changes of the visualized thoracic spine. Normal visualized ribs, clavicles, and shoulders. Surgical clips in the right upper quadrant of the abdomen are consistent with prior cholecystectomy. RAD/Chest PA and Lateral IMPRESSION: No acute cardiopulmonary disease. Electronically Signed: Wesley Araujo MD at 15:41 EST , Service support ,
== END ==
PROVIDERS: Family Provider Nurse Practitioner; PCP Nurse Practitioner; Referring Provider Internal Medicine Cardiovascular Disease; Visit Provider Internal Medicine Cardiovascular Disease
DX: R06.09 Other forms of dyspnea (principal); R94.39 Abnormal result of other cardiovascular function study
CPT/HCPCS: 71046

== ENCOUNTER 2018-08-12 08:33 | Day surgery (SDC) | payer BC, SELFPAY ==
[2018-07-12 14:03] VITALS: BMI 44.4
[2018-08-01 11:09] VITALS: BMI 44.4
[2018-08-01 13:04] LABS: Hematocrit 41.8 % (37-47); Hemoglobin 13.6 g/dl (12.0-15.0); Mean Corp Hgb Conc 32.5 g/gl (32-36); Mean Corpuscular Hgb 29.4 pg (27.0-32.0); Mean Corpuscular Volume 90.3 fL (81-99); Mean Platelet Vol. 10.2 fl (6.2-12.0); Platelet Count 254 K/mm3 (150-450); RBC Distribution Width CV 15.3 % (11.6-14.6); RBC Distribution Width SD 50.6 fl (35.1-43.9); Red Blood Count 4.63 M/mm3 (4.2-5.4); White Blood Count 7.4 K/mm3 (4.4-11.0)
[2018-08-01 13:06] LABS: Scan Indicated on CBC? Y/N NO
[2018-08-01 13:08] LABS: International Normalized Ratio 0.9; Partial Thromboplast Time 29.3 Seconds (24.1-36.2); Prothrombin Time (Protime)PT. 12.5 SECONDS (11.7-14.9)
[2018-08-01 13:31] LABS: Anion Gap 8 (5-15); BUN 31 mg/dL (7-18); BUN/Creat Ratio 20.9 RATIO (10-20); Calcium,Total 9.3 mg/dL (8.5-10.1); Chloride 104 mmol/L (98-107); Creatinine, Serum 1.48 mg/dL (0.55-1.02); EST Glomerular Filtration Rate 38 mL/min (>60); Est Glom Filt Rate - Afr Amer 46 mL/min (>60); Glucose 84 mg/dL (74-106); Potassium 4.8 mmol/L (3.5-5.1); Sodium Level 138 mmol/L (136-145)
[2018-08-11 07:40] VITALS: BMI 44.4
[2018-08-12 08:54] LABS: Hemoglobin 12.9 g/dl (12.0-15.0); Mean Corp Hgb Conc 32.3 g/gl (32-36); Mean Corpuscular Volume 89.9 fL (81-99); Mean Platelet Vol. 9.8 fl (6.2-12.0); Platelet Count 292 K/mm3 (150-450); RBC Distribution Width CV 14.8 % (11.6-14.6); RBC Distribution Width SD 48.3 fl (35.1-43.9); Red Blood Count 4.45 M/mm3 (4.2-5.4); White Blood Count 7.5 K/mm3 (4.4-11.0)
[2018-08-12 08:55] LABS: Scan Indicated on CBC? Y/N NO
[2018-08-12 09:00] LABS: Prothrombin Time (Protime)PT. 12.8 SECONDS (11.7-14.9)
[2018-08-12 09:01] LABS: Partial Thromboplast Time 30.9 Seconds (24.1-36.2)
[2018-08-12 09:07] LABS: Anion Gap 8 (5-15); BUN 34 mg/dL (7-18); BUN/Creat Ratio 16.4 RATIO (10-20); Calcium,Total 9.1 mg/dL (8.5-10.1); Chloride 103 mmol/L (98-107); Creatinine, Serum 2.07 mg/dL (0.55-1.02); EST Glomerular Filtration Rate 26 mL/min (>60); Est Glom Filt Rate - Afr Amer 31 mL/min (>60); Estimated Creatinine Clearance 28.11 ml/min; Glucose 97 mg/dL (74-106); Sodium Level 137 mmol/L (136-145)
--- NOTE | 2018-08-12 10:48 | CL.D_ITS ---
Patient Name: TOBIAS VALLES Study Date: 08/12/2018 Performing: Parrish Worrell MD Ht: 66.92 inches 170 cm : 1960 Wt: 284.4 lbs 129 kg Age: 58 Gender: female BSA: 2.35 PROCEDURE(S) PERFORMED RR10-QGY/LHC/COR/LV CLINICAL PROFILE AND INDICATIONS Indications: Suspected CAD, LV Dysfunction Heart Failure: NYHA Class: 2, Newly Diagnosed: Yes, Heart Failure Type: Systolic Stress/Imaging Stress Echocardiogram: Yes Result: IndeterminantStress Echocardiogram: Indetermina nt Angina Classification Anginal Classification w/in 2 Weeks: No symptoms CAD Presentations: Symptom unlikely to be ischemic. Comorbidities/Risk Factors: Hypertension Dyslipidemia CONCLUSIONS Non obstructive coronary arteries Global LV systolic dysfunction- Mild The patient has normal pulmonary hemodynamics. 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 DESCRIPTION OF PROCEDURE The patient arrived to the procedure lab. The risks and benefits of the procedure as well as a full d escription of our services here and current unavailability of surgical backup were fully explained to the patient and/or their significant other prior to the catheterization. The Timeout was completed, verifying the correct patient and procedure. The patient's procedural site was prepped and draped in the usual fashion. Local anesthetic was given subcutaneously to right groin region with Lidocaine 2%. Using a modified Seldinger technique, arterial access was obtained via the right femoral artery, a 4 Fr sheath was inserted Venous access was obtained via the right femoral vein, a 7Fr sheath was insert ed. A 7Fr thermal dilution catheter was inserted and right heart pressures were recorded, it was then advanced to PA position for cardiac outputs. O2 saturations were then obtained. Thermal dilution car diac outputs were then recorded. Left Ventriculography was performed in SANDS projection using a 4 Fr. Pigtail catheter. Simultaneous pressures were then recorded. LV to AO pullback pressure s were then recorded. The Thermal dilution catheter was then removed. Left Coronary Artery selective angiography was performed in multiple views using a 4 Fr. JL5 catheter. Right Coronary Artery selecti ve angiography was then performed in multiple views using a 4 Fr. 3DRC catheter.The arterial sheath w as pulled and manual compression applied until hemostasis is achieved. CORONARY ANGIOGRAPHY DOMINANCE: Right Dominant LEFT HEART ASSESSMENT Left Ventricular Ejection Fraction: by LV Gram 50-55 % Global Hypokinesis - Mild Depressed Left Ventricular systolic function LVEDP: 7 mmHg RIGHT HEART ASSESSMENT Thermal CO: 7.68 Thermal CI: 3.27 Leonora CO: 11.13 Leonora CI: 4.74 PW: 13 PA: 19 RV: 32/-2 5 RA: 32 1 PVR: 63 Right Heart pressures - normal LEFT MAIN: Angiographically normal LEFT ANTERIOR DECENDING ARTERY: DISTAL LAD: Mild luminal irregularities less than 30% CIRCUMFLEX ARTERY: Angiographically normal RIGHT CORONARY ARTERY: Angiographically normal COMPLICATIONS No Complications PROCEDURE MEDICATIONS Versed 1 mg IV Versed 1 mg IV Oxygen: 0ff/min via nasal cannula SUMMARY OF HEMODYNAMIC DATA Time AIR REST ECG 09:09:26 RA 3/2 (1) SV 10:25:54 RV 32/-2, 5 10:26:11 PW (13) PV 10:26:36 PA (19) PA 10:26:46 LV 97/-14, 4 10:31:27 LV 97/-10, 8 10:31:34 LV 97/-13, 7 10:31:49 PW 13/ (4) 10:31:49 LV 96/-6, 8 10:31:55 PW 11/8 (8) 10:31:55 LV 97/-10, 9 10:32:15 RV 33/1, 8 10:32:15 LV 100/-15, 7 10:32:20 RV 33/-5, 4 10:32:20 LV 104/-9, 9 10:33:32 LV 101/-10, 7 10:33:38 LVp 101/-15, 9 10:33:43 AOp 102/46 (66) 10:33:48 Type SV CO (l/m) CI (l/m/ HR Time AIR REST Thermal 84.40 7.68 3.27 91 09:09:26 Leonora 122.30 11.13 4.74 91 09:09:26 Label % O2 Pres/Loc Time AIR REST PA 73 PA 10:39:29 AO 89 PV 10:39:32 Signed By Parrish Worrell MD On 08/12/2018 10:46:52 Parrish Worrell MD
[2018-08-12 10:56] LABS: Blood Gas Specimen Type VEN; VBG BASE EXCESS -2 mmol/L (-1.0-3.5); VBG Bicarbonate 24 mmol/L (22-26); VBG Oxygen Content 26 mmol/L (23-33); VBG PO2 42 mmHg (25-40); VBG SO2 74 % (50-70); VBG pCO2 46.5 mmHg (41-51); VBG pH 7.33 (7.32-7.42)
[2018-08-12 10:56] LABS: Base Excess -1 mmol/L (-2 to +2); Bicarbonate 24.8 mmol/L (22-26); Blood Gas Specimen Type ART; PO2 61 mmHG (75-100); SO2 89 % (95-99); Total Carbon Dioxide 26 mmol/L; pCO2 46.5 mmHg (35-45); pH 7.33 (7.35-7.45)
[2018-08-12 10:56] LABS: Blood Gas Specimen Type VEN; VBG BASE EXCESS -2 mmol/L (-1.0-3.5); VBG Bicarbonate 24 mmol/L (22-26); VBG Oxygen Content 25 mmol/L (23-33); VBG PO2 42 mmHg (25-40); VBG SO2 72 % (50-70); VBG pCO2 47.1 mmHg (41-51); VBG pH 7.32 (7.32-7.42)
== END 2018-08-12 15:15 | disposition home or self-care (01) ==
LOC: CLSP 08:34
PROVIDERS: Family Provider Nurse Practitioner; PCP Nurse Practitioner; Referring Provider Internal Medicine Cardiovascular Disease; Visit Provider Internal Medicine Cardiovascular Disease
DX: I42.0 Dilated cardiomyopathy (principal); I27.20 Pulmonary hypertension, unspecified; I34.0 Nonrheumatic mitral (valve) insufficiency; I11.0 Hypertensive heart disease with heart failure; I50.21 Acute systolic (congestive) heart failure; R94.39 Abnormal result of other cardiovascular function study; E78.5 Hyperlipidemia, unspecified; J45.909 Unspecified asthma, uncomplicated; G47.10 Hypersomnia, unspecified; D64.9 Anemia, unspecified; E61.1 Iron deficiency; K21.9 Gastro-esophageal reflux disease without esophagitis; F32.9 Major depressive disorder, single episode, unspecified; F41.9 Anxiety disorder, unspecified; M06.9 Rheumatoid arthritis, unspecified; E66.01 Morbid (severe) obesity due to excess calories; Z68.41 Body mass index [BMI] 40.0-44.9, adult; Z79.82 Long term (current) use of aspirin; Z79.899 Other long term (current) drug therapy; Z87.891 Personal history of nicotine dependence
CPT/HCPCS: 36415; 80048; 82803; 85027; 85610; 85730; 93460; 99152; 99153; J7040; Q9967; C1751; C1769; C1894

== ENCOUNTER → 2018-10-31 08:45 | Outpatient (CLI) | payer BC, SELFPAY ==
[2018-09-19 18:41] VITALS: BMI 45.4
[2018-10-31 10:42] LABS: Absolute Neutrophil Count 4.8 X10^3/uL (2.0-7.7); Basophil# 0.02 X10^3/uL; Basophil% 0.3 % (0-1); Eosinophils% 7.1 % (0-5); Hematocrit 38.4 % (37-47); Hemoglobin 11.8 g/dl (12.0-15.0); Lymphocyte % 15.7 % (19-41); Mean Corp Hgb Conc 30.7 g/gl (32-36); Mean Corpuscular Hgb 29.8 pg (27.0-32.0); Mean Platelet Vol. 11.3 fl (6.2-12.0); Monocyte# 0.54 X10^3/uL; Monocyte% 7.7 % (0-10); Neutrophil # 4.83 X10^3/uL (2.7-7.7); Neutrophil % 69.1 % (47-70); Platelet Count 243 K/mm3 (150-450); RBC Distribution Width CV 15.4 % (11.6-14.6); RBC Distribution Width SD 52.4 fl (35.1-43.9); Red Blood Count 3.96 M/mm3 (4.2-5.4)
[2018-10-31 10:53] LABS: POSITIVE COUNT NO; POSITIVE DIFFERENTIAL NO; POSITIVE MORPHOLOGY NO
[2018-10-31 11:00] LABS: ALB/GLOB Ratio 1.2 RATIO (0.9-2.4); AST(SGOT) 25 U/L (15-37); Alanine Aminotransfer ALT/SGPT 33 U/L (13-56); Albumin, Serum 3.8 g/dL (3.2-5.0); Alkaline Phosphatase 139 U/L (45-117); Anion Gap 8 (5-15); BUN 22 mg/dL (7-18); BUN/Creat Ratio 18.8 RATIO (10-20); Calcium,Total 8.6 mg/dL (8.5-10.1); Chloride 110 mmol/L (98-107); Creatinine, Serum 1.17 mg/dL (0.55-1.02); EST Glomerular Filtration Rate 50 mL/min (>60); Est Glom Filt Rate - Afr Amer 61 mL/min (>60); Globulin 3.1 g/dL (2.2-4.2); Glucose 100 mg/dL (74-106); Protein, Total 6.9 g/dL (6.4-8.2); Sodium Level 144 mmol/L (136-145)
== END ==
PROVIDERS: Family Provider Nurse Practitioner; PCP Nurse Practitioner; Referring Provider Internal Medicine Rheumatology; Visit Provider Internal Medicine Rheumatology
DX: M05.79 Rheumatoid arthritis with rheumatoid factor of multiple sites without organ or systems involvement (principal); M79.7 Fibromyalgia; M17.0 Bilateral primary osteoarthritis of knee; M21.40 Flat foot [pes planus] (acquired), unspecified foot; I50.9 Heart failure, unspecified; K21.9 Gastro-esophageal reflux disease without esophagitis; F32.89 Other specified depressive episodes; J44.9 Chronic obstructive pulmonary disease, unspecified; Z85.820 Personal history of malignant melanoma of skin; Z79.899 Other long term (current) drug therapy
CPT/HCPCS: 36415; 80053; 85025

== ENCOUNTER → 2019-01-12 13:06 | Outpatient (CLI) | payer OTHER, SELFPAY ==
[2018-12-07 17:52] VITALS: BMI 45.1
[2019-01-12 14:19] LABS: Absolute Lymphocyte Count 1.27 X10^3/ul (0.83-4.51); Absolute Neutrophil Count 5.9 X10^3/uL (2.0-7.7); Basophil# 0.02 X10^3/uL; Basophil% 0.3 % (0-1); Eosinophil# 0.13 X10^3/uL; Eosinophils% 1.6 % (0-5); Hematocrit 40.6 % (37-47); Lymphocyte # 1.27 X10^3/ul (4.0); Lymphocyte % 16.1 % (19-41); Mean Corpuscular Volume 90.4 fL (81-99); Monocyte# 0.58 X10^3/uL; Monocyte% 7.3 % (0-10); Neutrophil # 5.89 X10^3/uL (2.7-7.7); Neutrophil % 74.4 % (47-70); Platelet Count 245 K/mm3 (150-450); RBC Distribution Width SD 45.9 fl (35.1-43.9); Red Blood Count 4.49 M/mm3 (4.2-5.4); White Blood Count 7.9 K/mm3 (4.4-11.0)
[2019-01-12 14:21] LABS: POSITIVE COUNT NO; POSITIVE DIFFERENTIAL NO; POSITIVE MORPHOLOGY NO
[2019-01-12 14:45] LABS: ALB/GLOB Ratio 0.9 RATIO (0.9-2.4); AST(SGOT) 28 U/L (15-37); Alanine Aminotransfer ALT/SGPT 50 U/L (13-56); Albumin, Serum 3.2 g/dL (3.2-5.0); Alkaline Phosphatase 151 U/L (45-117); Anion Gap 5 (5-15); BUN 20 mg/dL (7-18); BUN/Creat Ratio 19.6 RATIO (10-20); Calcium,Total 9.2 mg/dL (8.5-10.1); Chloride 104 mmol/L (98-107); Creatinine, Serum 1.02 mg/dL (0.55-1.02); EST Glomerular Filtration Rate 59 mL/min (>60); Est Glom Filt Rate - Afr Amer 71 mL/min (>60); Globulin 3.7 g/dL (2.2-4.2); Glucose 87 mg/dL (74-106); Potassium 3.5 mmol/L (3.5-5.1); Protein, Total 6.9 g/dL (6.4-8.2); Sodium Level 141 mmol/L (136-145)
== END ==
PROVIDERS: Family Provider Nurse Practitioner; PCP Nurse Practitioner; Referring Provider Internal Medicine Rheumatology; Visit Provider Internal Medicine Rheumatology
DX: M05.79 Rheumatoid arthritis with rheumatoid factor of multiple sites without organ or systems involvement (principal); M79.7 Fibromyalgia; M17.0 Bilateral primary osteoarthritis of knee; M21.40 Flat foot [pes planus] (acquired), unspecified foot; I11.0 Hypertensive heart disease with heart failure; I50.9 Heart failure, unspecified; G25.81 Restless legs syndrome; K21.9 Gastro-esophageal reflux disease without esophagitis; F32.89 Other specified depressive episodes; J44.9 Chronic obstructive pulmonary disease, unspecified; Z85.820 Personal history of malignant melanoma of skin; Z79.899 Other long term (current) drug therapy
CPT/HCPCS: 36415; 80053; 85025